=== PATIENT | female | born 1985 | race Caucasian/White ===

== ENCOUNTER 2017-04-27 23:09 | Emergency (ER) | payer BC, SELFPAY ==
[2017-04-27 23:11] VITALS: BP 111/64; PULSE 72; PULSE 78; RESP 14; TEMP 36.6; O2SAT 98; BMI 23.6
--- NOTE | 2017-04-27 23:47 | ED.VISSUMM ---
- ER Visit Summary Date of Service: 04/27/17 Chief Complaint: Abdominal pain with nausea and vomiting History of Present Illness: The patient is a 32 F. Past medical or surgical history. She has never been . Patient states for the last week he had intermittent sharp abdominal pain primarily suprapubic and periumbilical now it is in the epigastric region. Associated with nausea and vomiting. No hematemesis. No fever. No dysuria or hematuria. No vaginal bleeding or discharge she has never been before she states she was supposed to have her last menstrual period 2 weeks ago and missed it. She denies any fever. She denies any diarrhea or constipation. Physical Examination: 32-year-old female no acute distress. Vital signs are stable afebrile. Blood pressure 111/64. HEENT exam mildly dry mucous membranes. Neck nontender no lymphadenopathy. Lungs clear to auscultation bilaterally. Heart regular rhythm no murmur. Abdomen is soft and nondistended. No signs of obstruction. She has mild tenderness in the epigastric region and periumbilically. There is no hernia or masses. Normal bowel sounds. Both the right upper right lower quadrants are unremarkable. There are no peritoneal signs. She is moving all 4 extremities. Skin is unremarkable. Back is nontender no CVA tenderness. Neurologic exam is normal. Test Results: CBC shows a white count 11.5. Normal H&H. BMP unremarkable. Normal creatinine and gap. Liver enzymes are normal except for total bilirubin of 1.1. Lipase normal 131. UA shows blood on the macroscopic and ketones. However no signs of infection. Serum test is positive. Due to the test being positive and her abdominal pain I am obtaining a pelvic ultrasound and a quantitative hCG. Quantitative hCG returned at 42,397. Transvaginal pelvic ultrasound showed a single live IUP at 6 weeks and 4 days. With a heart rate of 105. Emergency Department Course and Treatment: Patient be treated with IV fluids and IV Zofran. Lab work will be obtained along with urinalysis. Treatment Plan: Repeat exam the patient is doing well at 0127. I went over all test results of both her and her significant other and we are waiting the ultrasound. Patient is doing well at 02 37 will be discharged home. Disposition: Discharge Impression: Abdominal pain with nausea and vomiting Newly diagnosed at 6 weeks and 4 days This note was generated with Dragon dictation software. It may contain incorrect words, spelling, and punctuation that were not noted in review of the chart prior to signing ED Disposition - Plan for ED Patient: Chief Complaint: Abd Pain Referrals: NOT,DEFINED [Primary Care Provider] -
[2017-04-28] MEDS: Ondansetron 4 MG/2 ML Vial IV (00:15)
[2017-04-28] MEDS: 0.9% Normal Saline 1,000 ML 1000 ML IV (00:15)
[2017-04-28 00:23] LABS: Bacteria 0 SEEN /hpf (None Seen); White Blood Cells 0 SEEN /hpf (0-5)
[2017-04-28 00:28] LABS: Absolute Neutrophil Count 8.5 X10^3/uL (2.0-7.7); Basophil# 0.01 X10^3/uL; Basophil% 0.1 % (0-1); Eosinophil# 0.04 X10^3/uL; Eosinophils% 0.3 % (0-5); Hematocrit 37.2 % (37-47); Hemoglobin 12.8 g/dl (12.0-15.0); Mean Corp Hgb Conc 34.4 g/gl (32-36); Mean Corpuscular Hgb 30.5 pg (27.0-32.0); Mean Corpuscular Volume 88.8 fL (81-99); Mean Platelet Vol. 10.1 fl (6.2-12.0); Monocyte# 0.65 X10^3/uL; Monocyte% 5.7 % (0-10); Neutrophil # 8.48 X10^3/uL (2.7-7.7); Neutrophil % 73.7 % (47-70); Platelet Count 191 K/mm3 (150-450); RBC Distribution Width CV 12.3 % (11.6-14.6); RBC Distribution Width SD 39.3 fl (35.1-43.9); Red Blood Count 4.19 M/mm3 (4.2-5.4); White Blood Count 11.5 K/mm3 (4.4-11.0)
[2017-04-28 00:28] LABS: Color, Urine Yellow (Yellow); Glucose, Dipstick Normal (Normal); Leukocyte Esterase-Dipstick Negative /ul (Negative); Nitrite-Dipstick Negative (Negative); Occult Blood-Urine 150 /ul (Negative); Protein-Dipstick 15 mg/dl (Negative); Specific Gravity, Urine 1.025 (1.002-1.030); Urine Bilirubin Dipstick Negative (Negative); Urine Clarity Clear (Clear); Urine Urobilinogen Normal (Normal)
[2017-04-28 00:35] LABS: POSITIVE COUNT NO; POSITIVE DIFFERENTIAL NO; POSITIVE MORPHOLOGY NO
[2017-04-28 00:38] LABS: Ketone-Dipstick 150 mg/dl (Negative); Mucous, Urine 3+ /hpf (<or=2+); Red Blood Cells-Urine 0-5 SEEN /hpf (0-5); Squamous Epithelial Cells - UA 0-5 SEEN /hpf (5-10)
[2017-04-28 00:41] LABS: AST(SGOT) 15 U/L (15-37); Alanine Aminotransfer ALT/SGPT 20 U/L (13-56); Albumin, Serum 3.3 g/dL (3.2-5.0); Alkaline Phosphatase 45 U/L (45-117); Anion Gap 7 (5-15); BUN 8 mg/dL (7-18); BUN/Creat Ratio 14.2 RATIO (10-20); Bilirubin, Direct 0.21 mg/dL (0.00-0.30); Calcium,Total 8.2 mg/dL (8.5-10.1); Chloride 108 mmol/L (98-107); Creatinine, Serum 0.56 mg/dL (0.55-1.02); EST Glomerular Filtration Rate 134 mL/min (>60); Est Glom Filt Rate - Afr Amer 162 mL/min (>60); Estimated Creatinine Clearance 105.51 ml/min; Globulin 3.2 g/dL (2.2-4.2); Glucose 87 mg/dL (74-106); Lipase 131 U/L (73-393); Potassium 3.4 mmol/L (3.5-5.1); Protein, Total 6.5 g/dL (6.4-8.2); Sodium Level 140 mmol/L (136-145)
[2017-04-28 01:07] LABS: Pregnancy, Serum, hCG Quali. POSITIVE Negative (0-9 Nonpreg)
--- NOTE | 2017-04-28 01:22 | US_ITS ---
STUDY: FIRST TRIMESTER OBSTETRICAL ULTRASOUND REASON FOR EXAM: Female, 32 years old. Pain, beta-hCG levels 42,000 LMP: 03/20/2017 TECHNIQUE: PRIOR ULTRASOUND: None. FINDINGS: There is visualization of a single gestational sac in a normal intrauterine position. The mean sac diameter (MSD) measures 1.92 cm, indicating an estimated gestational age (EGA) of 6 weeks, 6 days. The gestational sac shape is within normal limits. There is a visualized yolk sac. The yolk sac measures 3.8 mm. The placenta is non-visualized. There is visualization of a live embryo. The crown-rump length (CRL) measures 4.2 mm, indicating an estimated gestational age (EGA) of 6 weeks, 1 days. There is demonstrated cardiac activity with a heart rate of 105 bpm. The estimated gestation age (EGA) by LMP is 5 weeks, 4 days. The estimated date of delivery (SHAWNEE) by LMP is 12/25/2017. The estimated gestation age (EGA) by US is 6 weeks, 4 days. The estimated date of delivery (SHAWNEE) by US is 12/18/2017. The uterus measures 9.6 x 4.7 x 4.7 centimeters. There is no demonstrated uterine fibroid. The cervix is closed. The right ovary measures 3.6 x 2.5 x 1.6 cm. There is no right ovarian cyst. There is no visualized right adnexal mass or complex lesion. The left ovary measures 4.1 x 3.2 x 2.5 cm. There is no left ovarian cyst. There is no visualized left adnexal mass or complex lesion. There is no fluid in the cul de sac. US/Transvaginal w/Preg US IMPRESSION: Intrauterine gestation with sonographic age of 6 weeks 4 days. Cervix is closed. Positive cardiac activity. Electronically Signed: Gerard Atkinson MD at 3:26 EST Tel , Service support ,
--- NOTE | 2017-04-28 02:37 | ED.DEP ---
ED Disposition - Plan for ED Patient: Disposition: Home or Assisted Living Chief Complaint: Abd Pain Instructions: ED Preg Established Normal Sxs Prescriptions: Ondansetron [Zofran Odt] 4 mg PO Q4H PRN PRN #10 tab.rapdis PRN Reason: Nausea Referrals: Ingrid Pedroza MD [STAFF PHYSICIAN] - As soon as possible Additional Instructions: Zofran as needed for nausea. You have been diagnosed as at 6 weeks and 4 days. Call follow-up with [facility] physician for care. Stop smoking.
--- NOTE | 2017-04-28 02:41 | DCINST.ED_ITS ---
ED Disposition - Plan for ED Patient: Disposition: Home or Assisted Living Chief Complaint: Abd Pain Instructions: ED Preg Established Normal Sxs Prescriptions: Ondansetron [Zofran Odt] 4 mg PO Q4H PRN PRN #10 tab.rapdis PRN Reason: Nausea Referrals: Ingrid Pedroza MD [STAFF PHYSICIAN] - As soon as possible Additional Instructions: Zofran as needed for nausea. You have been diagnosed as at 6 weeks and 4 days. Call follow-up with [facility] physician for care. Stop smoking.
[2017-04-28 02:48] VITALS: PULSE 71; RESP 16; O2SAT 100
== END 2017-04-28 02:49 | disposition home or self-care (01) ==
PROVIDERS: Emergency Provider Emergency Medicine
DX: O21.9 Vomiting of pregnancy, unspecified (principal); R10.9 Unspecified abdominal pain; O99.331 Smoking (tobacco) complicating pregnancy, first trimester; Z3A.01 Less than 8 weeks gestation of pregnancy
CPT/HCPCS: 76817; 80048; 80076; 81001; 83690; 84702; 84703; 85025; 96361; 96374; 99283; J7030; A4216; J2405

== ENCOUNTER → 2017-05-06 14:39 | Outpatient (CLI) | payer BC, SELFPAY ==
[2017-05-06 16:14] LABS: hCG Titer Quant., Serum 124092 mIU/mL (<9 non-preg)
[2017-05-06 18:20] LABS: Chlamydia Trachomatis by PCR Negative (Negative); Neisserai gonorrhoeae by PCR Negative (Negative); Probe Check PASS; Sample Adequacy Control PASS; Specimen Processing Control PASS
[2017-05-07 08:50] LABS: Progesterone Level 24.57 ng/mL (See Comment)
[2017-05-14 15:50] LABS: HPV HC, High Risk Positive (Negative)
[2017-05-14 15:51] LABS: HPV Reflexed? YES, CHARGE PATIENT
== END ==
PROVIDERS: Visit Provider Obstetrics & Gynecology
DX: Z12.4 Encounter for screening for malignant neoplasm of cervix (principal); O20.0 Threatened abortion; Z11.3 Encounter for screening for infections with a predominantly sexual mode of transmission
CPT/HCPCS: 36415; 84144; 84702; 87491; 87591; 87624; 88175; G0145

== ENCOUNTER → 2017-05-09 14:02 | Outpatient (CLI) | payer BC, SELFPAY | PROVIDERS: Visit Provider Obstetrics & Gynecology | DX: Z32.01 Encounter for pregnancy test, result positive (principal); O20.0 Threatened abortion | CPT/HCPCS: 36415; 84702 ==

== ENCOUNTER 2017-05-15 05:49 | Day surgery (SDC) | payer BC, SELFPAY ==
--- NOTE | 2017-05-15 | POC_PTH ---
PATIENT: CHINTAN LIVINGSTON LOC: [facility] [place] U#:[id number] AGE/SX: 32/F ROOM: RE05/15/[address]: Dr. Abner Zhu MD : 1985 BED: DIS: 05/15/2017 SPEC #: [id number] RECD: 05/15/17 11:10 STATUS: ALICIA MARY #: [id number] WILSON: 05/15/17 00:[address]: Abner Zhu DEPT: SURGICAL PATHOLOGY RECD BY: Austin Werner ENTERED: 05/15/17 11:11 SP TYPE: PROD CONC OTHR DR: No Primary Care Phys Tissues: Product of conception, NOS Procedures: Surgery Specimen Level IV HEADER OPERATION: Suction dilation and curettage PRE-OP DIAGNOSIS: Missed TISSUE SUBMITTED: Products of conception MICROSCOPIC DIAGNOSIS Products of conception: [place]id[place], gestational endometrium and immature chorionic villi (products of conception). SJ:jonas 05/16/17 MICROSCOPIC DESCRIPTION Slides are reviewed. GROSS DESCRIPTION Received in fixative is one container labeled with the patient's name and designated POC. The specimen consists of multiple pieces of mercado-pink soft tissue that in aggregate measure 7 x 6 x 2 cm. No tissue is identified. Or Nurse Manager tissue is submitted in two cassettes. / SJ:rg 05/15/17 TC:5 CPT: 70264
[2017-05-15 06:08] VITALS: BP 111/59; PULSE 62; RESP 16; TEMP 36.6; O2SAT 100; BMI 24.5
[2017-05-15 06:24] LABS: Hematocrit 40.3 % (37-47); Hemoglobin 13.8 g/dl (12.0-15.0); Mean Corp Hgb Conc 34.2 g/gl (32-36); Mean Corpuscular Hgb 30.6 pg (27.0-32.0); Mean Corpuscular Volume 89.4 fL (81-99); Mean Platelet Vol. 9.9 fl (6.2-12.0); Platelet Count 213 K/mm3 (150-450); RBC Distribution Width CV 12.1 % (11.6-14.6); Red Blood Count 4.51 M/mm3 (4.2-5.4); White Blood Count 11.5 K/mm3 (4.4-11.0)
[2017-05-15 06:29] LABS: Scan Indicated on CBC? Y/N NO
--- NOTE | 2017-05-15 06:34 | OP.PCM_ITS ---
Problem List (1) Missed ab Status: Acute Report of Operation Date of Procedure: 05/15/17 Pre-Operative Diagnosis: Missed at 6 weeks Post-Operative Diagnosis: same Surgery/Procedure Performed:: Suction Dilation and Curettage Description of Surgical Findings:: 8 weeks size uterus, products of conception appropriate for US findings computer systems consultant: None Type of Anesthesia:: MAC Anesthesiologist: Ja Puckett Special Medications: none Specimen's removed: Products of Conception Drains: none Estimated Blood Loss (mL): 50cc Fluids Replaced: 500cc LR Description of Procedure: Elisa was taken to the OR with IV running. She was given two grams of cefotetan as surgical prophylaxis. SCDs were in place and operational from the preoperative area through surgery and into recovery. MAC anesthesia was introduced without complication. She was then prepped and draped in the dorsal lithotomy position. A red rubber catheter was used to drain the bladder. A weighted speculum was placed in the posterior vagina. The cervix was identified and the anterior lip grasped with a single toothed tenaculum. The cervix was then serially dilated to 8mm without difficulty. A #7 suction curette was placed into the uterine cavity, suction applied and products of conception was obtained. A sharp curettage was then performed. The suction curette was replaced and the remaining products were removed. Bleeding was appropriate. All instruments were then removed. She was reversed from anesthesia and taken to the recovery room in stable condition. SHe has rH positive blood type. - Complications none - Admit VTE Documentation VTE Present on Admission: No VTE Mechan Device Prophylaxis: SCD's VTE Pharm Prophylaxis ordered?: No
--- NOTE | 2017-05-15 07:24 | PCM.DC ---
- Discharge Diagnoses Current Active Problems: Current Active and Chronic Problems Missed ab (Acute) You will use the following diet at home:: No restrictions Your food should be the consistency of: Regular Discharge Activity: Return to Normal Activity, May Drive, May not drive while taking narcotic pain medications., May Shower Return to work on:: 05/19/17 May shower in (days): 0 May resume sexual activity in: 3 weeks Call your doctor if your incision/area has: Sudden Increased Bleeding, Increased Pain/ Swelling, Foul Smelling Discharge Call your doctor if you observe: Fever of 101 or Higher, Inability to urinate, Inability to have a bowel movement, Using more than one pad per hour, Shortness of breath, Chest pain, Calf discomfort, Uncontrolled pain Cleanse incision/area with: Soap & Water Allergies/Adverse Reactions: Allergies No Known Allergies Allergy (Verified 05/13/17 16:00) Medications to take at Discharge Ibuprofen [Motrin] 800 mg PO TID PRN PRN #30 tab 05/15/17 Oxycodone [Oxyir] 5 mg PO Q4H PRN PRN 7 Days #14 tab 05/15/17 The following prescriptions were given: Oxycodone [Oxyir] 5 mg PO Q4H PRN PRN 7 Days #14 tab PRN Reason: Severe Pain (6-10/10) Ibuprofen [Motrin] 800 mg PO TID PRN PRN #30 tab PRN Reason: pain or cramping Primary Care Physician: Care Physician,No Primary [Primary Care Provider] - Please Follow Up With: Abner Zhu MD When: 1-2 weeks Proposed Discharge Date: 05/15/17
[2017-05-15 07:52] VITALS: BP 103/65; BP 111/59; PULSE 70; RESP 16; TEMP 36.6; O2SAT 99
[2017-05-15 07:55] VITALS: BP 111/59; BP 112/75; PULSE 60; RESP 16; O2SAT 98
[2017-05-15 08:00] VITALS: BP 102/70; BP 111/59; PULSE 58; RESP 16; O2SAT 100
[2017-05-15 08:05] VITALS: BP 104/69; BP 111/59; PULSE 55; PULSE 58; RESP 16; TEMP 36.4; O2SAT 100
[2017-05-15 08:58] VITALS: BP 111/59
== END 2017-05-15 08:59 | disposition home or self-care (01) ==
LOC: SDC 05:50 → AC 05:51
PROVIDERS: Visit Provider Obstetrics & Gynecology
PROC: (CPT 59820; principal; 2017-05-15 07:15)
DX: O02.1 Missed abortion (principal); Z87.891 Personal history of nicotine dependence; Z3A.01 Less than 8 weeks gestation of pregnancy
CPT/HCPCS: 01965; 59820; 36415; 85027; 86850; 86900; 88305; J7120; J2405

== ENCOUNTER → 2017-06-17 16:17 | Outpatient (CLI) | payer BC, SELFPAY ==
--- NOTE | 2017-06-17 | CER_PTH ---
PATIENT: CHINTAN LIVINGSTON LOC: [facility] U#:[id number] AGE/SX: 39/F ROOM: RE06/17/[address]: Dr. Abner hZu MD : 1985 BED: DIS: SPEC #: [id number] RECD: 06/17/17 16:00 STATUS: ALICIA MARY #: [id number] WILSON: 06/17/17 00:[address]: Abner Zhu DEPT: SURGICAL PATHOLOGY RECD BY: Ginny Vargas Tissues: A - Uterine cervix, NOS B - Endocervical Procedures: Surgery Specimen Level IV HEADER OPERATION: Colposcopy PRE-OP DIAGNOSIS: Pap ASCUS, HPV/HR positive TISSUE SUBMITTED: A. Cervical biopsy at 10 o?clock, B. ECC MICROSCOPIC DIAGNOSIS A. Cervix at 10 o?clock, biopsy: Mild, moderate and focal severe squamous dysplasia, MARY I-III (HGSIL). Changes consistent with HPV cytopathic effect. Squamous metaplasia and chronic inflammation. B. Endocervix, curettings: Strips squamous mucosa with mild and moderate squamous dysplasia, MARY I-II (HGSIL). Strips of benign superficial endocervix with squamous metaplasia. AM:jonas 06/19/17 COMMENT A & B. Results from immunohistochemistry ([id number]) for surrogate HPV marker (p16) will be reported separately. MICROSCOPIC DESCRIPTION Slides are reviewed. GROSS DESCRIPTION A - Received in fixative is one container labeled with the patient's name and designated cervical biopsy. The specimen consists of one irregular fragment of light mercado soft tissue that measures 0.5 x 0.2 x 0.1 cm. The specimen is totally submitted in one cassette. B - Received in fixative is one container labeled with the patient's name and designated ECC. The specimen consists of multiple irregular fragments of light to dark mercado mucoid material that in aggregate measure 1.5 x 1 x <0.1 cm. The specimen is totally submitted in one cassette. / AM:jonas 06/18/17 TC:5 CPT: 44235 x2
--- NOTE | 2017-06-17 | IMM_PTH ---
PATIENT: CHINTAN LIVINGSTON LOC: [facility] U#:[id number] AGE/SX: 39/F ROOM: RE06/17/[address]: Dr. Abner Zhu MD : 1985 BED: DIS: SPEC #: [id number] RECD: 06/19/17 10:59 STATUS: ALICIA MARY #: [id number] WILSON: 06/17/17 00:[address]: Abner Zhu DEPT: IMMUNOHISTOCHEMISTRY RECD BY: Neetu Simeon Tissues: A - Uterine cervix, NOS B - Endocervical Procedures: p16 (initial) KI-67 (add) PHYSICIAN & [place] [id number] SPECIMEN INFORMATION: Tissue Source: A ? Cervical biopsy at 10 o?clock, B - ECC Clinical Info: ASCUS, HPV,HR positive Specimen Number: [id number] A & B CPT code: 50885 x2, 23017 x2 METHODOLOGY: Deparaffinized sections of prefer/formalin-fixed tissue or PAP/DQ stained slides are incubated with monoclonal/polyclonal antibodies/oligonucleotide probes. Localization is made via biotin free immunoperoxidase method. Appropriate controls are performed and reacted as expected. Results on target cell population are indicated in the following table: RESULTS: ANTIBODY / CLONE RESULT Block A P16 (E6H4) positive, block-like Ki-67 (30-9) positive, moderate Block B P16 (E6H4) positive, block-like Ki-67 (30-9) positive, moderate These tests were developed and their performance characteristics determined by [facility]. They may not have been cleared or approved by the U.S. Food and Drug Administration. The FDA has determined that such clearance or approval is not necessary. INTERPRETATION: A. Cervix at 10 o?clock, biopsy: Severe squamous dysplasia, MARY III (HGSIL). B. ECC: Moderate squamous dysplasia, MARY II (HGSIL). AM:jonas 06/19/17
== END ==
PROVIDERS: Visit Provider Obstetrics & Gynecology
DX: R87.610 Atypical squamous cells of undetermined significance on cytologic smear of cervix (ASC-US) (principal); R87.810 Cervical high risk human papillomavirus (HPV) DNA test positive
CPT/HCPCS: 88305; 88341; 88342

== ENCOUNTER → 2017-07-20 17:58 | Outpatient (CLI) | payer BC, SELFPAY ==
[2017-07-20 18:39] LABS: Hematocrit 40.3 % (37-47); Hemoglobin 13.9 g/dl (12.0-15.0); Mean Corp Hgb Conc 34.5 g/gl (32-36); Mean Corpuscular Hgb 31.3 pg (27.0-32.0); Mean Corpuscular Volume 90.8 fL (81-99); Mean Platelet Vol. 10.4 fl (6.2-12.0); Platelet Count 208 K/mm3 (150-450); RBC Distribution Width CV 12.2 % (11.6-14.6); RBC Distribution Width SD 40.6 fl (35.1-43.9); Red Blood Count 4.44 M/mm3 (4.2-5.4)
[2017-07-20 18:48] LABS: International Normalized Ratio 1.2; Prothrombin Time (Protime)PT. 15.1 SECONDS (11.7-14.9)
[2017-07-20 18:49] LABS: Partial Thromboplast Time 28.1 Seconds (24.1-36.2)
[2017-07-20 18:52] LABS: Scan Indicated on CBC? Y/N NO
[2017-07-20 19:00] LABS: Pregnancy, Serum, hCG Quali. NEGATIVE Negative (0-9 Nonpreg)
== END ==
PROVIDERS: Visit Provider Obstetrics & Gynecology
DX: Z01.818 Encounter for other preprocedural examination (principal)
CPT/HCPCS: 36415; 84703; 85027; 85610; 85730; 86850; 86900

== ENCOUNTER 2017-07-22 10:18 | Day surgery (SDC) | payer BC, SELFPAY ==
[2017-07-17 16:42] LABS: Hematocrit 38.7 % (37-47); Hemoglobin 13.1 g/dl (12.0-15.0); Mean Corp Hgb Conc 33.9 g/gl (32-36); Mean Corpuscular Hgb 31.1 pg (27.0-32.0); Mean Corpuscular Volume 91.9 fL (81-99); Mean Platelet Vol. 10.5 fl (6.2-12.0); Platelet Count 211 K/mm3 (150-450); RBC Distribution Width CV 12.4 % (11.6-14.6); RBC Distribution Width SD 41.6 fl (35.1-43.9); Red Blood Count 4.21 M/mm3 (4.2-5.4); White Blood Count 7.6 K/mm3 (4.4-11.0)
[2017-07-17 16:58] LABS: International Normalized Ratio 1.2; Scan Indicated on CBC? Y/N NO
[2017-07-17 16:59] LABS: Partial Thromboplast Time 27.5 Seconds (24.1-36.2)
[2017-07-17 17:36] LABS: Pregnancy, Serum, hCG Quali. NEGATIVE Negative (0-9 Nonpreg)
[2017-07-22] VITALS (7 sets, daily range): BP systolic 117–133; BP diastolic 79–97; PULSE 54–71; RESP 14–16; TEMP 36.4–36.7; O2SAT 98–100; BMI 23.3
--- NOTE | 2017-07-22 | IMM_PTH ---
PATIENT: CHINTAN LIVINGSTON LOC: [facility] [place] U#:[id number] AGE/SX: 32/F ROOM: RE07/22/[address]: Dr. Abner Zhu MD : 1985 BED: DIS: 07/22/2017 SPEC #: [id number] RECD: 07/24/17 12:59 STATUS: LAICIA REDorota #: [id number] WILSON: 07/22/17 00:[address]: Abner Zhu DEPT: IMMUNOHISTOCHEMISTRY RECD BY: Neetu Simeon ENTERED: 07/24/17 13:00 SP TYPE: IMMUNO OTHR DR: No Primary Care Phys Tissues: Uterine cervix, NOS Procedures: p16 (initial) KI-67 (add) PHYSICIAN & INSTITUTION [place] [id number] SPECIMEN INFORMATION: Tissue Source: LEEP of cervix Clinical Info: Cervical dysplasia Specimen Number: [id number] #5 CPT code: 98636, 52531 METHODOLOGY: Deparaffinized sections of prefer/formalin-fixed tissue or PAP/DQ stained slides are incubated with monoclonal/polyclonal antibodies/oligonucleotide probes. Localization is made via biotin free immunoperoxidase method. Appropriate controls are performed and reacted as expected. Results on target cell population are indicated in the following table: RESULTS: ANTIBODY / CLONE RESULT Block 5 P16 (E6H4) positive, block staining Ki-67 (30-9) positive These tests were developed and their performance characteristics determined by [facility]. They may not have been cleared or approved by the U.S. Food and Drug Administration. The FDA has determined that such clearance or approval is not necessary. INTERPRETATION: LEEP of cervix: Moderate to severe squamous dysplasia. SJ:jonas 07/25/17
[2017-07-22 10:37] LABS: Internal QC Validated? YES +Cl - CLEAR BKGD; Pregnancy, Urine Negative Negative
--- NOTE | 2017-07-22 12:00 | CER_PTH ---
PATIENT: CHINTAN LIVINGSTON LOC: [facility] [place] [place] U#:[id number] AGE/SX: 32/F ROOM: RE07/22/[address]: Dr. Abner Zhu MD : 1985 BED: DIS: 07/22/2017 SPEC #: [id number] RECD: 07/22/17 16:17 STATUS: ALICIA MARY #: [id number] WILSON: 07/22/17 12:[address]: Abner Zhu DEPT: SURGICAL PATHOLOGY RECD BY: Austin Werner ENTERED: 07/23/17 08:07 SP TYPE: CERV OTHR DR: No Primary Care Phys Tissues: Uterine cervix, NOS Procedures: Surgery Specimen Level V HEADER OPERATION: LEEP cone PRE-OP DIAGNOSIS: Cervical dysplasia TISSUE SUBMITTED: LEEP of cervix MICROSCOPIC DIAGNOSIS Cervix, LEEP conization: Focal moderate to severe squamous dysplasia (HGSIL, MARY II-III). Focal squamous metaplasia. See comment. SJ:jonas 07/24/17 COMMENT Evaluation of the resection margin is difficult, as specimen is received in multiple pieces. Please make reference to previous specimen ([id number]), cervix at 10 o?clock, biopsy with diagnosis of mild, moderate and focal severe squamous dysplasia and endocervix, curettings with diagnosis of squamous mucosa with mild and moderate squamous dysplasia. Immunohistochemistry ([id number]) for surrogate HPV marker (p16) supports the above diagnosis. MICROSCOPIC DESCRIPTION Slides are reviewed. GROSS DESCRIPTION Received in fixative is one container labeled with the patient's name and designated LEEP of cervix. The specimen consists of three variable size pieces of mercado, indurated tissue measuring 2.2 x 0.6 x 0.5 cm, 1.5 x 0.5 x 0.2 cm and 2 x 1 x 0.3 cm. No mucosal lesion is identified. Nonmucosal surface is inked. The specimen is serially sectioned and submitted entirely in five cassettes as follows: 1 ? smallest piece, 2 & 3 ? one larger piece, 4 & 5 ? second larger piece. / SJ:jonas 07/23/17 TC:5 CPT: 56139
--- NOTE | 2017-07-22 12:18 | PCM.DC ---
You will use the following diet at home:: Regular Discharge Activity: Return to Normal Activity, No Restrictions, May not drive while taking narcotic pain medications., May Shower Return to work on:: 07/25/17 May shower in (days): 0 May resume sexual activity in: 4-6 weeks Call your doctor if your incision/area has: Continuous Slow Oozing, Sudden Increased Bleeding, Increased Pain/ Swelling, Foul Smelling Discharge Call your doctor if you observe: Fever of 101 or Higher, Inability to urinate, Inability to have a bowel movement, Using more than one pad per hour, Shortness of breath, Chest pain, Calf discomfort, Uncontrolled pain Cleanse incision/area with: Soap & Water Allergies/Adverse Reactions: Allergies No Known Allergies Allergy (Verified 07/16/17 15:43) Medications to take at Discharge Ibuprofen [Motrin] 800 mg PO TID PRN PRN #30 tab 07/22/17 Oxycodone [Oxyir] 5 mg PO Q4H PRN PRN 7 Days #20 tab 07/22/17 The following prescriptions were given: Oxycodone [Oxyir] 5 mg PO Q4H PRN PRN 7 Days #20 tab PRN Reason: Pain Ibuprofen [Motrin] 800 mg PO TID PRN PRN #30 tab PRN Reason: pain or cramping Primary Care Physician: Care Physician,No Primary [Primary Care Provider] - Please Follow Up With: Abner Zhu MD When: one week
--- NOTE | 2017-07-22 12:34 | PCM.OPRPT ---
Problem List (1) Cervical dysplasia Status: Chronic Report of Operation Date of Procedure: 07/22/17 Pre-Operative Diagnosis: Cervical dysplasia Post-Operative Diagnosis: Same Surgery/Procedure Performed:: Loop Electrosurgical Excisional Procedure (LEEP) Description of Surgical Findings:: No gross ectocervical lesions noted. german professor: None Type of Anesthesia:: MAC Anesthesiologist: Sal Duke Special Medications: none Specimen's removed: Portion of ectocervix and endocervix Drains: none Estimated Blood Loss (mL): none Fluids Replaced: 500cc LR Description of Procedure: Elisa was taken to the OR with IV running. She was given two grams of Cefotetan intravenously for surgical prophylaxis. MAC anesthesia was introduced. She was then prepped and draped in the dorsal lithotomy position. A red rubber catheter was used to drain the bladder. A shielded speculum was then placed. The cervix was painted with a strong iodine solution. A medium sized loop was then used to remove a portion of the ectocervix. Another portion of the endocervix was removed. Bleeding was minimal. A ball cautery was used to coagulate the margins of the cervix. She was reversed from anesthesia and taken to the recovery room in stable condition. Sponge and instrument counts were correct. - Complications none - Admit VTE Documentation VTE Present on Admission: No VTE Mechan Device Prophylaxis: SCD's VTE Pharm Prophylaxis ordered?: No
--- NOTE | 2017-07-22 12:41 | OP.PCM_ITS ---
Problem List (1) Cervical dysplasia Status: Chronic Report of Operation Date of Procedure: 07/22/17 Pre-Operative Diagnosis: Cervical dysplasia Post-Operative Diagnosis: Same Surgery/Procedure Performed:: Loop Electrosurgical Excisional Procedure (LEEP) Description of Surgical Findings:: No gross ectocervical lesions noted. sales and marketing analyst: None Type of Anesthesia:: MAC Anesthesiologist: Sal Duke Special Medications: none Specimen's removed: Portion of ectocervix and endocervix Drains: none Estimated Blood Loss (mL): none Fluids Replaced: 500cc LR Description of Procedure: Elisa was taken to the OR with IV running. She was given two grams of Cefotetan intravenously for surgical prophylaxis. MAC anesthesia was introduced. She was then prepped and draped in the dorsal lithotomy position. A red rubber catheter was used to drain the bladder. A shielded speculum was then placed. The cervix was painted with a strong iodine solution. A medium sized loop was then used to remove a portion of the ectocervix. Another portion of the endocervix was removed. Bleeding was minimal. A ball cautery was used to coagulate the margins of the cervix. She was reversed from anesthesia and taken to the recovery room in stable condition. Sponge and instrument counts were correct. - Complications none - Admit VTE Documentation VTE Present on Admission: No VTE Mechan Device Prophylaxis: SCD's VTE Pharm Prophylaxis ordered?: No
== END 2017-07-22 13:24 | disposition home or self-care (01) ==
LOC: SDC 10:18 → AC 10:19
PROVIDERS: Visit Provider Obstetrics & Gynecology
PROC: 0UBC7ZZ Excision of Cervix, Via Natural or Artificial Opening (ICD-10-PCS; CPT 57522; principal; 2017-07-22 11:45)
DX: N87.1 Moderate cervical dysplasia (principal); K58.9 Irritable bowel syndrome, unspecified; F17.210 Nicotine dependence, cigarettes, uncomplicated
CPT/HCPCS: 00940; 57522; 36415; 81025; 84703; 85027; 85610; 85730; 88307; 88341; 88342; J7120; J2405

== ENCOUNTER 2017-10-24 14:57 | Emergency (ER) | payer BC, SELFPAY ==
[2017-10-24 14:58] VITALS: BP 119/87; PULSE 79; RESP 16; TEMP 36.2; O2SAT 66; BMI 23.7
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
[2017-10-24 17:20] VITALS: RESP 14
== END 2017-10-24 17:21 | disposition home or self-care (01) ==
PROVIDERS: Emergency Provider Emergency Medicine
DX: S09.90XA Unspecified injury of head, initial encounter (principal); S16.1XXA Strain of muscle, fascia and tendon at neck level, initial encounter; M25.561 Pain in right knee; R07.9 Chest pain, unspecified; M62.838 Other muscle spasm; V49.9XXA Car occupant (driver) (passenger) injured in unspecified traffic accident, initial encounter; Y93.9 Activity, unspecified; Y92.9 Unspecified place or not applicable; Y99.9 Unspecified external cause status; Z72.0 Tobacco use
CPT/HCPCS: 70450; 71046; 72125; 73564; 99284

== ENCOUNTER → 2017-12-16 19:09 | Outpatient (CLI) | payer BC, SELFPAY ==
[2017-12-23 09:29] LABS: HPV Reflexed? NOT INDICATED
== END ==
PROVIDERS: Referring Provider Obstetrics & Gynecology; Visit Provider Obstetrics & Gynecology
DX: Z12.4 Encounter for screening for malignant neoplasm of cervix (principal)
CPT/HCPCS: 88175; G0145

== ENCOUNTER 2018-02-19 12:21 | Emergency (ER) | payer BC, SELFPAY ==
[2018-02-19 12:21] VITALS: BMI 23.6
[2018-02-19 12:22] VITALS: BP 150/87; PULSE 65; RESP 15; TEMP 36.3; O2SAT 99; BMI 23.8
--- NOTE | 2018-02-19 13:00 | RAD_ITS ---
STUDY: X-RAY - LEFT WRIST REASON FOR EXAM: Female, 32 years old. Pain. No known injury. TECHNIQUE: 3 view(s) of the wrist were obtained. COMPARISON: None. FINDINGS: Normal visualized distal radius and ulna. Normal radiocarpal articulation. Normal distal radioulnar articulation. Normal carpal bones. Normal carpal articulations. Normal carpometacarpal articulation of the thumb. Normal second through fifth carpometacarpal articulations. Normal visualized metacarpal bones. The soft tissue structures are unremarkable. RAD/Wrist min 3 Views IMPRESSION: Normal x-ray examination of the wrist. Electronically Signed: León Calle MD at 13:45 EST Tel [phone], Service support ,
[2018-02-19] MEDS: Ibuprofen 600 MG Tablet PO (13:35)
--- NOTE | 2018-02-19 14:02 | ED.DCSUM_ITS ---
- ER Visit Summary Date of Service: 02/19/18 Chief Complaint: Left wrist pain History of Present Illness: The patient is a 32 F with left wrist pain that came on today. Pain is over her volar left wrist. She noted some swelling to the area. She does a lot of lifting at work, but denies any definite injuries. No weakness or numbness. No other associated symptoms. Nothing makes it better or worse. Physical Examination: Afebrile vital signs unremarkable. Inspection shows a a hematoma about the size of a half dollar over her left wrist. Skin is intact. No deformity. Range of motion normal. Neurovascular intact distally. Test Results: Xray is negative Emergency Department Course and Treatment: Patient treated with anti- inflammatories. Rest and ice. Splint as needed. Follow-up with primary care. This is likely a hematoma. Treatment Plan: As above Disposition: Discharged Impression: 1. Left wrist hematoma This note was generated with [employer] dictation software. It may contain incorrect words, spelling, and punctuation that were not noted in review of the chart prior to signing ED Disposition - Plan for ED Patient: Chief Complaint: Upper Extremity Injury Referrals: Care Physician,No Primary [Primary Care Provider] -
--- NOTE | 2018-02-19 14:02 | ED.DEP ---
ED Disposition - Plan for ED Patient: Chief Complaint: Upper Extremity Injury Instructions: ED Sprain Wrist Prescriptions: Ibuprofen [Motrin] 800 mg PO TID PRN PRN #20 tab PRN Reason: Pain Referrals: Care Physician,No Primary [Primary Care Provider] -
[2018-02-19 14:11] VITALS: BP 110/67; RESP 15
--- OUTSIDE RECORDS SUMMARY | 2018-04-16 16:55 | XMS RPT_ITS ---
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 mercado, indurated tissue measuring 2.2 x 0.6 x 0.5 cm, 1.5 x 0.5 x 0.2 cm and 2 x 1 x 0.3 cm. No mucosal lesion is identified. Nonmucosal surface is inked. The specimen is serially sectioned and submitted entirely in five cassettes as follows: 1 smallest piece, 2 AND 3 one larger piece, 4 AND 5 second larger piece. / SJ:jonas 07/23/17 TC:5 CPT: 19208 HEADER OPERATION: LEEP cone PRE-OP DIAGNOSIS: Cervical dysplasia TISSUE SUBMITTED: LEEP of cervix MICROSCOPIC DESCRIPTION Slides are reviewed. 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 Focal squamous metaplasia. See comment. SJ:jonas 07/24/17 Signed Abilio Anguiano 07/25/17 <signature on file> Performed By: #### PCER #### [facility] [address] [place], [place], [address] ,URINE Collected: 07/22/2017 Status: F Source: [facility] [place] 10:30 AM [facility] TYPE CODE TESTS RESULT OUT OF REFERENCE UNITS RANGE LAB L400.8000 Negative Normal HCGUQUAL Negative Result Comment: Very dilute urine specimens, as indicated by a low specific gravity, may not contain electronics parts sales representative levels of hCG. If is still suspected, a first morning urine specimen should be collected 48 hours later and tested. Performed By: #### L400.7600 #### [facility] [address] [place], [address] IMMUNOHISTOCHEMISTRY Observed: 07/22/2017 Status: F Source: [place] 12:00 AM [facility] Patient: CHINTAN PATEL : 1985 (/) Acct Num: [id number] Phys: Abner Zuh MD Unit Num: [id number] Loc[place] [facility] [place]imen: [id number] Received: 07/24/17 - 1259 Spec Type: IMMUNO TISSUES TISSUES: Uterine cervix, NOS - #5 SPECIMEN INFORMATION: Tissue Source: LEEP of cervix Clinical Info: Cervical dysplasia Specimen Number: [id number] #5 CPT code: 47105, 79669 METHODOLOGY: Deparaffinized sections of prefer/formalin-fixed tissue or PAP/DQ stained slides are incubated with monoclonal/polyclonal antibodies/oligonucleotide probes. Localization is made via biotin free immunoperoxidase method. Appropriate controls are performed and reacted as expected. Results on target cell population are indicated in the following table: RESULTS: ANTIBODY / CLONE RESULT Block 5 P16 (E6H4) positive, block staining Ki-67 (30-9) positive These tests were developed and their performance characteristics determined by [facility]. They may not have been cleared or approved by the U.S. Food and Drug Administration. The FDA has determined that such clearance or approval is not necessary. INTERPRETATION: LEEP of cervix: Moderate to severe squamous dysplasia. SJ:jonas 07/25/17 PHYS[facility]IAN [facility] IN[facility] [address] [address] Signed Abilio Anguiano 07/25/17 <signature on file> Performed By: #### PIMM #### [facility] [address] [place] [address]. [place], [place], [address] PROTHROMBIN TIME W/INR Collected: 07/20/2017 Status: F Source: [place] 6:25 PM [facility] TYPE CODE TESTS RESULT OUT OF RANGE REFERENCE UNITS LAB L300.4150 11.7-14.9 SECONDS High PROTIME 15.1 LAB L300.4200 Normal INR 1.2 Performed By: #### L300.3900, L300.4310 #### [facility] [address] [place] [address]. [place], [address] PARTIAL THROMBOPLAST Collected: 07/20/2017 Status: F Source: [place] TIME 6:25 PM [facility] TYPE CODE TESTS RESULT OUT OF RANGE REFERENCE UNITS LAB L300.4310 24.1-36.2 Seconds Normal PTT 28.1 Performed By: #### L300.3900, L300.4310 #### [facility] [place], [address] CBC-COMPLETE BLOOD CNT Collected: 07/20/2017 Status: F Source: [place] NO DIFF 6:25 PM [facility] TYPE CODE TESTS RESULT OUT OF RANGE REFERENCE UNITS LAB L100.1000 4.4-11.0 K/mm3 Normal WBC 8.0 LAB L100.1200 4.2-5.4 M/mm3 Normal RBC 4.44 LAB L100.1300 12.0-15.0 g/dl Normal HGB 13.9 LAB L100.1400 37-47 % Normal HCT 40.3 LAB L100.1500 81-99 fL Normal MCV 90.8 LAB L100.1600 27.0-32.0 pg Normal MCH 31.3 LAB L100.1700 32-36 g/gl Normal MCHC 34.5 LAB L100.1810 11.6-14.6 % Normal RDW CV 12.2 LAB L100.1820 35.1-43.9 fl Normal RDW SD 40.6 LAB L100.1900 150-450 K/mm3 Normal PLT 208 LAB L100.2000 6.2-12.0 fl Normal MPV 10.4 Performed By: #### L100.0500 #### [facility] [address] [place], [place], [address] ,SERUM,HCG QUALI. Collected: Status: F Source: [place] 07/20/2017 6:25 PM [facility] Order Comment: Date of Last Menstrual Period? 07/06/17 TYPE CODE TESTS RESULT OUT OF REFERENCE UNITS RANGE LAB L700.7000 0-9 Nonpreg Negative Normal HCGSQUAL NEGATIVE LAB L700.6700 =>Qualitative mIU/mL Normal HCG Qual < 1 triggr Performed By: #### L700.6800 #### [facility] [address] [place], [address] TYPE AND SCREEN Collected: 07/20/2017 Status: F Source: [place] 6:25 PM [facility] Order Comment: Surgery Date: 07/22/17 Hx of Preganancy in last 3 Months Yes Ever experience any problems with transfusion(s)? N Hx of Transfusion in last 3 Months N Reason for Type AND Screen/Red Cells: SURGERY Time: 0000 Other - use comments: TS SURGICAL PROCEDURE: CERVIX BIO TYPE CODE TESTS RESULT OUT OF RANGE REFERENCE UNITS LAB B10.0800 AB Normal BLOOD TYPE GEL POSITIVE LAB B100.4000 Normal Antibody NEGATIVE Screen Performed By: #### B101.7475 #### [facility] [address] [place], [place], [address] CBC-COMPLETE BLOOD CNT Collected: 07/17/2017 Status: F Source: [place] NO DIFF 3:54 PM [facility] TYPE CODE TESTS RESULT OUT OF RANGE REFERENCE UNITS LAB L100.1000 4.4-11.0 K/mm3 Normal WBC 7.6 LAB L100.1200 4.2-5.4 M/mm3 Normal RBC 4.21 LAB L100.1300 12.0-15.0 g/dl Normal HGB 13.1 LAB L100.1400 37-47 % Normal HCT 38.7 LAB L100.1500 81-99 fL Normal MCV 91.9 LAB L100.1600 27.0-32.0 pg Normal MCH 31.1 LAB L100.1700 32-36 g/gl Normal MCHC 33.9 LAB L100.1810 11.6-14.6 % Normal RDW CV 12.4 LAB L100.1820 35.1-43.9 fl Normal RDW SD 41.6 LAB L100.1900 150-450 K/mm3 Normal PLT 211 LAB L100.2000 6.2-12.0 fl Normal MPV 10.5 Performed By: #### L100.0500 #### [facility] [address] [place], [place], [address] PROTHROMBIN TIME W/INR Collected: 07/17/2017 Status: F Source: [place] 3:54 PM [facility] Order Comment: PT WAS IN [place] SHE WAS ADVISED TO COME TWO DAYS BEFORE HER SURGERY TO GET HER TSPAT DONE TYPE CODE TESTS RESULT OUT OF RANGE REFERENCE UNITS LAB L300.4150 11.7-14.9 SECONDS High PROTIME 15.0 LAB L300.4200 Normal INR 1.2 Performed By: #### L300.3900, L300.4310 #### [facility] [address] [place], [place], [address] PARTIAL THROMBOPLAST Collected: 07/17/2017 Status: F Source: [place] TIME 3:54 PM [facility] Order Comment: PT WAS IN [place] SHE WAS ADVISED TO COME TWO DAYS BEFORE HER SURGERY TO GET HER TSPAT DONE TYPE CODE TESTS RESULT OUT OF RANGE REFERENCE UNITS LAB L300.4310 24.1-36.2 Seconds Normal PTT 27.5 Performed By: #### L300.3900, L300.4310 #### [facility] [address] [place], [address] ,SERUM,HCG QUALI. Collected: Status: F Source: [place] 07/17/2017 3:54 PM [facility] TYPE CODE TESTS RESULT OUT OF REFERENCE UNITS RANGE LAB L700.7000 0-9 Nonpreg Negative Normal HCGSQUAL NEGATIVE LAB L700.6700 =>Qualitative mIU/mL Normal HCG Qual 1 triggr Performed By: #### L700.6800 #### [facility] [address] [facility] [place], [address] CERVICAL Observed: 06/17/2017 Status: F Source: [place] 12:00 AM [facility] Patient: CHINTAN PATEL : 1985 (32/F) Acct Num: [id number] Phys: Abner Zhu MD Unit Num: [id number] Loc: [facility] Specimen: [id number] Received: 06/17/17 - 1600 Spec Type: CERV TISSUES TISSUES: A. Uterine cervix, NOS B. Endocervical COMMENT A AND B. Results from immunohistochemistry ([id number]) for surrogate HPV marker ( p16) will be reported separately. GROSS DESCRIPTION A - Received in fixative is one container labeled with the patient's name and designated cervical biopsy. The specimen consists of one irregular fragment of light mercado soft tissue that measures 0.5 x 0.2 x 0.1 cm. The specimen is totally submitted in one cassette. B - Received in fixative is one container labeled with the patient's name and designated ECC. The specimen consists of multiple irregular fragments of light to dark mercado mucoid material that in aggregate measure 1.5 x 1 x <0.1 cm. The specimen is totally submitted in one cassette. / AM:rg 06/18/17 TC:5 CPT: 84410 x2 HEADER OPERATION: Colposcopy PRE-OP DIAGNOSIS: Pap ASCUS, HPV/HR positive TISSUE SUBMITTED: A. Cervical biopsy at 10 o clock, B. ECC MICROSCOPIC DESCRIPTION Slides are reviewed. MICROSCOPIC DIAGNOSIS A. Cervix at 10 o clock, biopsy: Mild, moderate and focal severe squamous dysplasia, MARY I-III (HGSIL). Changes consistent with HPV cytopathic effect. Squamous metaplasia and chronic inflammation. B. Endocervix, curettings: Strips squamous mucosa with mild and moderate squamous dysplasia, MARY I-II (HGSIL). Strips of benign superficial endocervix with squamous metaplasia. AM:jonas 06/19/17 Signed Navin Sharath 06/19/17 <signature on file> Performed By: #### PCER #### [facility] [address] [place], [address] IMMUNOHISTOCHEMISTRY Observed: 06/17/2017 Status: F Source: [place] 12:00 AM [facility] Patient: CHINTAN PATEL : 1985 (32/) Acct Num: [id number] Phys: Abner Zhu MD Unit Num: [id number] Loc: [facility] Specimen: [id number] Received: 06/19/17 - 9 Spec Type: IMMUNO TISSUES TISSUES: A. Uterine cervix, NOS B. Endocervical SPECIMEN INFORMATION: Tissue Source: A Cervical biopsy at 10 o clock, B - ECC Clinical Info: ASCUS, HPV,HR positive Specimen Number: [id number] A AND B CPT code: 63114 x2, 34328 x2 METHODOLOGY: Deparaffinized sections of prefer/formalin-fixed tissue or PAP/DQ stained slides are incubated with monoclonal/polyclonal antibodies/oligonucleotide probes. Localization is made via biotin free immunoperoxidase method. Appropriate controls are performed and reacted as expected. Results on target cell population are indicated in the following table: RESULTS: ANTIBODY / CLONE RESULT Block A P16 (E6H4) positive, block-like Ki-67 (30-9) positive, moderate Block B P16 (E6H4) positive, block-like Ki-67 (30-9) positive, moderate These tests were developed and their performance characteristics determined by [facility]. They may not have been cleared or approved by the U.S. Food and Drug Administration. The FDA has determined that such clearance or approval is not necessary. INTERPRETATION: A. Cervix at 10 o clock, biopsy: Severe squamous dysplasia, MARY III (HGSIL). B. ECC: Moderate squamous dysplasia, MARY II (HGSIL). AM:jonas 06/19/17 PHYSICIAN AND INSTITUTION [place] [address] [place], [place] [address] Signed Navin Sharath 06/19/17 <signature on file> Performed By: #### PIMM #### [facility] [address] [place] [address]. [place], [address] OPERATIVE REPORT Observed: 05/15/2017 Status: F Source: [place] [place] 7:29 AM [facility] Medical Records Department [address] [place] [address] Operative Report 05/15/17 0626 MR#: [id number] Acct: [id number] Name: CHINTAN PATEL Rep #: [id number] : 1985 32 From: Abner Zhu MD PCP: Care Physician, No Primary Status: [facility] Location: [place] [address] Problem List (1) Missed ab Status: Acute Report of Operation Date of Procedure: 05/15/17 Pre-Operative Diagnosis: Missed at 6 weeks Post-Operative Diagnosis: same Surgery/Procedure Performed:: Suction Dilation and Curettage Description of Surgical Findings:: 8 weeks size uterus, products of conception appropriate for US findings deputy editor in chief: None Type of Anesthesia:: MAC Anesthesiologist: Ja Puckett Special Medications: none Specimen's removed: Products of Conception Drains: none Estimated Blood Loss (mL): 50cc Fluids Replaced: 500cc LR Description of Procedure: Chintan was taken to the OR with IV running. She was given two grams of cefotetan as surgical prophylaxis. SCDs were in place and operational from the preoperative area through surgery and into recovery. MAC anesthesia was introduced without complication. She was then prepped and draped in the dorsal lithotomy position. A red rubber catheter was used to drain the bladder. A weighted speculum was placed in the posterior vagina. The cervix was identified and the anterior lip grasped with a single toothed tenaculum. The cervix was then serially dilated to 8mm without difficulty. A #7 suction curette was placed into the uterine cavity, suction applied and products of conception was obtained. A sharp curettage was then performed. The suction curette was replaced and the remaining products were removed. Bleeding was appropriate. All instruments were then removed. She was reversed from anesthesia and taken to the recovery room in stable condition. SHe has rH positive blood type. - Complications none - Admit VTE Documentation VTE Present on Admission: No VTE Mechan Device Prophylaxis: SCD's VTE Pharm Prophylaxis ordered?: No 05/15/17 0729 <Electronically signed by Abner Zhu MD> Date Abner Zhu MD CC: No Primary Care Physician; Abner Zhu MD Signed DISCHARGE INSTRUCTION Observed: 05/15/2017 Status: F Source: [place] 7:26 AM [facility] Medical Records Department [address] [place] [address] Instructions for Home/Discharge Instructions 05/15/17 0724 MR#: [id number] Acct: [id number] Name: CHINTAN PATEL Rep #: [id number] : 1985 32 From: Abner Zhu MD PCP: Care Physician, No Primary Status: REG SDC - Discharge Diagnoses Current Active Problems: Current Active and Chronic Problems Missed ab (Acute) You will use the following diet at home:: No restrictions Your food should be the consistency of: Regular Discharge Activity: Return to Normal Activity, May Drive, May not drive while taking narcotic pain medications., May Shower Return to work on:: 05/19/17 May shower in (days): 0 May resume sexual activity in: 3 weeks Call your doctor if your incision/area has: Sudden Increased Bleeding, Increased Pain/ Swelling, Foul Smelling Discharge Call your doctor if you observe: Fever of 101 or Higher, Inability to urinate, Inability to have a bowel movement, Using more than one pad per hour, Shortness of breath, Chest pain, Calf discomfort, Uncontrolled pain Cleanse incision/area with: Soap AND Water Allergies/Adverse Reactions: Allergies No Known Allergies Allergy (Verified 05/13/17 16:00) Medications to take at Discharge Ibuprofen [Motrin] 800 mg PO TID PRN PRN #30 tab 05/15/17 Oxycodone [Oxyir] 5 mg PO Q4H PRN PRN 7 Days #14 tab 05/15/17 The following prescriptions were given: Oxycodone [Oxyir] 5 mg PO Q4H PRN PRN 7 Days #14 tab PRN Reason: Severe Pain (-12/31) Ibuprofen [Motrin] 800 mg PO TID PRN PRN #30 tab PRN Reason: pain or cramping Primary Care Physician: Care Physician,No Primary [Primary Care Provider] - Please Follow Up With: Abner Zhu MD When: 1-2 weeks Proposed Discharge Date: 05/15/17 05/15/17 0726 <Electronically signed by Abner Zhu MD> Date Abner Zhu MD CC: No Primary Care Physician CBC-COMPLETE BLOOD CNT Collected: 05/15/2017 Status: F Source: [place] NO DIFF 6:10 AM [facility] TYPE CODE TESTS RESULT OUT OF RANGE REFERENCE UNITS LAB L100.1000 4.4-11.0 K/mm3 High WBC 11.5 LAB L100.1200 4.2-5.4 M/mm3 Normal RBC 4.51 LAB L100.1300 12.0-15.0 g/dl Normal HGB 13.8 LAB L100.1400 37-47 % Normal HCT 40.3 LAB L100.1500 81-99 fL Normal MCV 89.4 LAB L100.1600 27.0-32.0 pg Normal MCH 30.6 LAB L100.1700 32-36 g/gl Normal MCHC 34.2 LAB L100.1810 11.6-14.6 % Normal RDW CV 12.1 LAB L100.1820 35.1-43.9 fl Normal RDW SD 39.0 LAB L100.1900 150-450 K/mm3 Normal PLT 213 LAB L100.2000 6.2-12.0 fl Normal MPV 9.9 Performed By: #### L100.0500 #### [facility] [address] [place] [place], [address] TYPE AND SCREEN Collected: 05/15/2017 Status: F Source: [place] 6:10 AM [facility] Order Comment: Has pt arrived? Y Reason for Type AND Screen/Red Cells: SURGERY TYPE CODE TESTS RESULT OUT OF RANGE REFERENCE UNITS LAB B10.0800 AB Normal BLOOD TYPE GEL POSITIVE LAB B100.4000 Normal Antibody NEGATIVE Screen Performed By: #### B101.7450 #### [facility] [address] [place], [address] PRODUCTS OF CONCEPTION Observed: 05/15/2017 Status: F Source: [place] 12:00 AM [facility] Patient: CHINTAN PATEL : 1985 (32/) Acct Num: [id number] Phys: Abner Zhu MD Unit Num: [id number] [place] [facility] [place] Specimen: [id number] Received: 05/15/17 - 1110 Spec Type: PROD CONC TISSUES TISSUES: Product of conception, NOS GROSS DESCRIPTION Received in fixative is one container labeled with the patient's name and designated POC. The specimen consists of multiple pieces of mercado-pink soft tissue that in aggregate measure 7 x 6 x 2 cm. No tissue is identified. Securities Sales Associate tissue is submitted in two cassettes. / SILVIANO:jonas 05/15/17 TC:5 CPT: 92813 HEADER OPERATION: Suction dilation and curettage PRE-OP DIAGNOSIS: Missed TISSUE SUBMITTED: Products of conception MICROSCOPIC DESCRIPTION Slides are reviewed. MICROSCOPIC DIAGNOSIS Products of conception: Decidua, gestational endometrium and immature chorionic villi (products of conception). SILVIANO:jonas 05/16/17 Signed Abilio Anguiano 05/16/17 <signature on file> Performed By: #### PPOC #### [facility] [address] [place], [address] HCG TITER QUANT., Collected: 05/09/2017 Status: F Source: [place] SERUM 2:04 PM [facility] TYPE CODE TESTS RESULT OUT OF RANGE REFERENCE UNITS LAB L700.8000 <9 non-preg mIU/mL High HCG 926830 QUANT. Performed By: #### L700.8000 #### [facility] [address] [place], [address] HCG TITER QUANT., Collected: 05/06/2017 Status: F Source: [place] SERUM 2:42 PM [facility] TYPE CODE TESTS RESULT OUT OF RANGE REFERENCE UNITS LAB L700.8000 <9 non-preg mIU/mL High HCG 619317 QUANT. Performed By: #### L700.8000 #### [facility] [address] [facility] [address] [place], [place], [address] PROGESTERONE LEVEL Collected: 05/06/2017 Status: F Source: [place] 2:42 PM [facility] TYPE CODE TESTS RESULT OUT OF REFERENCE UNITS RANGE LAB L509.4001 See Comment ng/mL Progesterone Normal 24.57 Result Comment: Progesterone Reference Table: UNITS Female: Follicular 0.15 - 1.40 ng/mL Luteal 3.34 - 25.56 ng/mL Mid-luteal 4.44 - 28.03 ng/mL Postmenopausal 0.0 - 0.73 ng/mL : 1st Trimester 11.22 - 90.00 ng/mL 2nd Trimester 25.55 - 89.40 ng/mL 3rd Trimester 48.40 -422.50 ng/mL Performed By: #### L509.4001 #### [facility] [address] [place], [place], [address] CT/NG WCH BY PCR Collected: 05/06/2017 Status: F Source: [place] 2:10 PM [facility] TYPE CODE TESTS RESULT OUT OF RANGE REFERENCE UNITS LAB L8200.2100 Negative Normal Chlam Negative Trac PCR LAB L8200.2200 Negative Normal NG by Negative PCR Performed By: #### L8200.2000 #### [facility] [address] [facility] [facility] [address] [place], [place], [address] PAP I-G W/RFX HRHPV Collected: 05/06/2017 Status: F Source: [place] 2:10 PM [facility] RE[facility] Order Comment: CYTOLOGY INFORMATION: - CLINICAL INFORMATION: - DATE LMP/MENOPAUSE: 03/13/17 LMP - COLLECTION VIAL: Thin Prep Vial - CORDWAINER SOURCE: CERVICAL/ENDOCERVICAL - COLLECTION TECHNIQUE: BRUSH/SPATULA Specimen Comment: [id number] Specimen Comment: No. of containers..01 ThinPrep Vial TYPE CODE TESTS RESULT OUT OF REFERENCE UNITS RANGE LAB L7400.0800 . High DIAGN Comment Result Comment: EPITHELIAL CELL ABNORMALITY. ATYPICAL SQUAMOUS CELLS OF UNDETERMINED SIGNIFICANCE. LAB L7400.0900 . Normal ADEQ Comment Result Comment: Satisfactory for evaluation. Endocervical and/or squamous metaplastic cells (endocervical component) are present. LAB L7400.1400 . Normal PERFORM Comment Result Comment: Drew Howard, Broiler Manager (ASCP) LAB L7400.1700 . Normal SIGN Comment Result Comment: Vance Golden MD (Charles), Pathologist LAB L7400.1720 . Normal Path prov. Comment ICD9 Result Comment: R87.610 LAB L7400.2575 . Normal TEST METHOD Comment Result Comment: This liquid based ThinPrep(R) pap test was screened with the use of an image guided system. LAB L7400.2600 . Normal . COMM LAB L7400.2700 . Normal PAPSMR Comment Result Comment: The Pap smear is a screening test designed to aid in the detection of premalignant and malignant conditions of the uterine cervix. It is not a diagnostic procedure and should not be used as the sole means of detecting cervical cancer. Both false-positive and false-negative reports do occur. LAB L7400.2800 . Normal HPV RFLX Comment Result Comment: See below for HPV testing results. LAB L7400.2900 Negative High HPV HC,HGH Positive RISK Result Comment: This high-risk HPV test detects thirteen high-risk types (16/18/31/33/35/39/45/51/52/56/58/59/68) without differentiation. Performed at: [address] [place] [id number] Physical Metallurgist: Rosenda Thornton MD, Phone: [phone] Performed at: [facility] - [facility] [address] [place], [place] [id number] Physical Metallurgist: Aletha Phillips MD, Phone: [phone] Performed at: =G - [facility] [address] [place], [place] [id number] Physical Metallurgist: Aletha Phillips MD, Phone: [phone] Performed By: #### L7400.0350 #### [facility] (refer to report for specific site) refer to report for address and phone number DISCHARGE INSTRUCTION Observed: 04/28/2017 Status: F Source: [place] 3:01 AM [facility] RE[facility]IT[facility] Medical Records Department [address] [place] [address] Discharge Instruction 04/28/177 MR#: [id number] Acct: [id number] Name: CHINTAN PATEL Rep #: [id number] : 1985 32 From: Baudilio Huston MD PCP: NOT, DEFINED Status: DEP ER ED Disposition - Plan for ED Patient: Disposition: Home or Assisted Living Chief Complaint: Abd Pain Instructions: ED Preg Established Normal Sxs Prescriptions: Ondansetron [Zofran Odt] 4 mg PO Q4H PRN PRN #10 tab.rapdis PRN Reason: Nausea Referrals: Ingrid Pedroza MD [STAFF PHYSICIAN] - As soon as possible Additional Instructions: Zofran as needed for nausea. You have been diagnosed as at 6 weeks and 4 days. Call follow-up with RETURN CLERK physician for care. Stop smoking. What to do if you have Problems For any increased pain, shortness of breath, bleeding, nausea or vomiting, chest pain, or any unexpected problems, contact your Primary Care Provider. Call [facility] ([phone]) or report to the closest Emergency Room. Call 911 if necessary. 04/28/17 0301 <Electronically signed by Baudilio Huston MD> Date Baudilio Huston MD Cosigner Signature (If Indicated): Date CC: DEFINED NOT; No Primary Care Physician EMERGENCY DEPARTMENT Observed: 04/28/2017 Status: F Source: [place] SUMMARY 3:00 AM [facility] REPOSITORY [facility] Medical Records Department [address] [place] [address] Emergency Department Summary 04/27/17 2347 MR#: [id number] Acct: [id number] Name: CHINTAN PATEL Rep #: [id number] : 1985 32 From: Baudilio Huston MD PCP: NOT, DEFINED Status: DEP ER - ER Visit Summary Date of Service: 04/27/17 Chief Complaint: Abdominal pain with nausea and vomiting History of Present Illness: The patient is a 32 F. Past medical or surgical history. She has never been . Patient states for the last week he had intermittent sharp abdominal pain primarily suprapubic and periumbilical now it is in the epigastric region. Associated with nausea and vomiting. No hematemesis. No fever. No dysuria or hematuria. No vaginal bleeding or discharge she has never been before she states she was supposed to have her last menstrual period 2 weeks ago and missed it. She denies any fever. She denies any diarrhea or constipation. Physical Examination: 32-year-old female no acute distress. Vital signs are stable afebrile. Blood pressure 111/64. HEENT exam mildly dry mucous membranes. Neck nontender no lymphadenopathy. Lungs clear to auscultation bilaterally. Heart regular rhythm no murmur. Abdomen is soft and nondistended. No signs of obstruction. She has mild tenderness in the epigastric region and periumbilically. There is no hernia or masses. Normal bowel sounds. Both the right upper right lower quadrants are unremarkable. There are no peritoneal signs. She is moving all 4 extremities. Skin is unremarkable. Back is nontender no CVA tenderness. Neurologic exam is normal. Test Results: CBC shows a white count 11.5. Normal H AND H. BMP unremarkable. Normal creatinine and gap. Liver enzymes are normal except for total bilirubin of 1.1. Lipase normal 131. UA shows blood on the macroscopic and ketones. However no signs of infection. Serum test is positive. Due to the test being positive and her abdominal pain I am obtaining a pelvic ultrasound and a quantitative hCG. Quantitative hCG returned at 42,397. Transvaginal pelvic ultrasound showed a single live IUP at 6 weeks and 4 days. With a heart rate of 105. Emergency Department Course and Treatment: Patient be treated with IV fluids and IV Zofran. Lab work will be obtained along with urinalysis. Treatment Plan: Repeat exam the patient is doing well at 0127. I went over all test results of both her and her significant other and we are waiting the ultrasound. Patient is doing well at 02 37 will be discharged home. Disposition: Discharge Impression: Abdominal pain with nausea and vomiting Newly diagnosed at 6 weeks and 4 days This note was generated with [employer] dictation software. It may contain incorrect words, spelling, and punctuation that were not noted in review of the chart prior to signing ED Disposition - Plan for ED Patient: Chief Complaint: Abd Pain Referrals: NOT,DEFINED [Primary Care Provider] - What to do if you have Problems For any increased pain, shortness of breath, bleeding, nausea or vomiting, chest pain, or any unexpected problems, contact your Primary Care Provider. Call [facility] ([phone]) or report to the closest Emergency Room. Call 911 if necessary. 04/28/17 0300 <Electronically signed by Baudilio Huston MD> Date Baudilio Huston MD Cosigner Signature (If Indicated): Date CC: DEFINED NOT; No Primary Care Physician TRANSVAGINAL W/PREG US Observed: 04/28/2017 Status: F Source: [place] 1:23 AM [facility] REPOSITORY [facility] Imaging Services [address] [place] [address] Transvaginal w/Preg US MR#: [id number] Acct: [id number] Name: CHINTAN PATEL Rep #: [id number] : 1985 F 32 From: Gerard Atkinson MD PCP: NOT, DEFINED Status: DEP Study: Transvaginal w/Preg US Date of Exam: 04/28/17 Exam# [id number] Ordering Dr: Baudilio Huston MD STUDY: FIRST TRIMESTER OBSTETRICAL ULTRASOUND REASON FOR EXAM: Female, 32 years old. Pain, beta-hCG levels 42,000 LMP: 03/20/2017 TECHNIQUE: PRIOR ULTRASOUND: None. FINDINGS: There is visualization of a single gestational sac in a normal intrauterine position. The mean sac diameter (MSD) measures 1.92 cm, indicating an estimated gestational age (EGA) of 6 weeks, 6 days. The gestational sac shape is within normal limits. There is a visualized yolk sac. The yolk sac measures 3.8 mm. The placenta is non-visualized. There is visualization of a live embryo. The crown-rump length (CRL) measures 4.2 mm, indicating an estimated gestational age (EGA) of 6 weeks, 1 days. There is demonstrated cardiac activity with a heart rate of 105 bpm. The estimated gestation age (EGA) by LMP is 5 weeks, 4 days. The estimated date of delivery (SHAWNEE) by LMP is 12/25/2017. The estimated gestation age (EGA) by US is 6 weeks, 4 days. The estimated date of delivery (SHAWNEE) by US is 12/18/2017. The uterus measures 9.6 x 4.7 x 4.7 centimeters. There is no demonstrated uterine fibroid. The cervix is closed. The right ovary measures 3.6 x 2.5 x 1.6 cm. There is no right ovarian cyst. There is no visualized right adnexal mass or complex lesion. The left ovary measures 4.1 x 3.2 x 2.5 cm. There is no left ovarian cyst. There is no visualized left adnexal mass or complex lesion. There is no fluid in the cul de sac. US/Transvaginal w/Preg US IMPRESSION: Intrauterine gestation with sonographic age of 6 weeks 4 days. Cervix is closed. Positive cardiac activity. Electronically Signed: Gerard Atkinson MD at 3:26 EST Tel , Service support , CC: DEFINED NOT; Baudilio Huston MD Film Librarian: Signed URINALYSIS, COMPLETE Collected: 04/28/2017 Status: F Source: [place] 12:14 AM [facility] REPOSITORY Order Comment: How was Urine Obtained? CLEAN CATCH TYPE CODE TESTS RESULT OUT OF RANGE REFERENCE UNITS LAB L400.3000 Yellow COLOR Normal Yellow LAB L400.3050 Clear Normal CLARITY Clear LAB L400.3200 Normal mg/dl Normal GLUCOSE, UR Normal LAB L400.3300 Negative mg/dL Normal BILIRUBIN URINE Negative LAB L400.3400 Negative mg/dl High KETONE UR 150 Result Comment: CRITICAL VALUE *H CRITICAL VALUE VERIFIED. CALLED TO [facility] 04/28/17 0038 Jyoti Avila. RESULTS READ BACK BY SAME . LAB L400.3465 1.002-1.030 Normal SP.GR. DIPSTX 1.025 LAB L400.3550 5.0 - 8.0 pH Normal UR 6.0 LAB L400.3600 Negative mg/dl High 15 PROT DIPSTX LAB L400.3700 Normal mg/dl Normal UROBILI Normal LAB L400.3750 Negative Normal NITRITE UR Negative LAB L400.3780 Negative /ul High OCCULT 150 BLOOD-UR LAB L400.3800 Negative /ul Normal LEUK ESTERASE Negative LAB L400.4050 0-5 /hpf 0 Normal WBC SEEN LAB L400.4100 0-5 /hpf Normal RBC-UA 0-5 SEEN LAB L400.4150 5-10 /hpf Normal SQUAM EPI 0-5 SEEN LAB L400.4300 None Seen /hpf 0 Normal BACTERIA SEEN LAB L400.4350 <or=2+ /hpf 3+ Normal MUCUS, URINE Performed By: #### L400.0001 #### [facility] [address] [place], [address] HCG TITER QUANT., Collected: 04/28/2017 Status: F Source: [place] SERUM 12:12 AM [facility] REPOSITORY TYPE CODE TESTS RESULT OUT OF RANGE REFERENCE UNITS LAB L700.8000 <9 non-preg mIU/mL High HCG 84390 QUANT. Performed By: #### L700.8000 #### [facility] [address] [place], [place], [address] CBC W/DIFF, AUTOMATED Collected: 04/27/2017 Status: F Source: [place] 12:12 AM [facility] REPOSITORY TYPE CODE TESTS RESULT OUT OF RANGE REFERENCE UNITS LAB L100.1000 4.4-11.0 K/mm3 High WBC 11.5 LAB L100.1200 4.2-5.4 M/mm3 Low RBC 4.19 LAB L100.1300 12.0-15.0 g/dl Normal HGB 12.8 LAB L100.1400 37-47 % Normal HCT 37.2 LAB L100.1500 81-99 fL Normal MCV 88.8 LAB L100.1600 27.0-32.0 pg Normal MCH 30.5 LAB L100.1700 32-36 g/gl Normal MCHC 34.4 LAB L100.1810 11.6-14.6 % Normal RDW CV 12.3 LAB L100.1820 35.1-43.9 fl Normal RDW SD 39.3 LAB L100.1900 150-450 K/mm3 Normal PLT 191 LAB L100.2000 6.2-12.0 fl Normal MPV 10.1 LAB L100.2100 47-70 % High NEUT% 73.7 LAB L100.2200 19-41 % Normal LY% 20.0 LAB L100.2300 0-10 % Normal MONO% 5.7 LAB L100.2400 0-5 % Normal EO% 0.3 LAB L100.2500 0-1 % Normal BASO% 0.1 LAB L100.2550 0.0-0.9 % Normal IM GRAN % 0.200 Result Comment: IG% - Immature Granulocytes (promyelocytes, myelocytes and metamyelocytes) > 1% indicates that a LEFT SHIFT is Present. LAB L100.2620 2.0-7.7 X10 3/uL High Absolute Neut 8.5 LAB L100.2720 0.83-4.51 X10 3/ul Normal Absolute Lymph 2.30 Performed By: #### L100.0100 #### [facility] [address] [place], [place], [address] BASIC METABOLIC Collected: 04/27/2017 Status: F Source: [place] PROFILE (BMP) 12:12 AM [facility] REPOSITORY TYPE CODE TESTS RESULT OUT OF RANGE REFERENCE UNITS LAB L501.0100 74-106 mg/dL Normal GLU 87 LAB L501.1000 7-18 mg/dL Normal BUN 8 LAB L501.1100 0.55-1.02 mg/dL Normal 0.56 CREAT,SERUM Result Comment: The validity of the calculated GFR AND GFRAA in patients over 70 years has not been determined. Clinical correlation is essential. LAB L501.1110 >60 mL/min Normal EST GFR 134 Result Comment: Non- GFR Calc LAB L501.1115 >60 mL/min Normal EST GFR - AA 162 Result Comment: GFR Calc LAB L501.1255 ml/min Normal Estimated CRCL 105.51 LAB L501.1300 10-20 RATIO BUN/CRE Normal 14.2 LAB L501.2200 8.5-10 mg/dL Low .1 CA 8.2 LAB L501.5300 136-14 mmol/L 5 NA Normal 140 LAB L501.5600 3.5-5. mmol/L Low 1 K 3.4 LAB L501.5900 98-107 mmol/L High CL 108 LAB L501.6100 21.0-3 mmol/L 2.0 CO2 Normal 25.0 LAB L501.6200 5-15 GAP Normal 7 Performed By: #### L500.2500, L500.3400, L501.2450 #### [facility] [place], [address] LIVER PROFILE Collected: 04/27/2017 Status: F Source: [place] 12:12 AM [facility] REPOSITORY TYPE CODE TESTS RESULT OUT OF RANGE REFERENCE UNITS LAB L501.1500 6.4-8.2 g/dL Normal T PROT 6.5 LAB L501.1800 3.2-5.0 g/dL Normal ALB 3.3 LAB L501.1950 2.2-4.2 g/dL Normal GLOB 3.2 LAB L501.4100 15-37 U/L Normal AST 15 LAB L501.4305 45-117 U/L Normal ALK P 45 LAB L501.4405 13-56 U/L Normal ALT 20 Result Comment: Please note revised ALT reference range effective 2017. LAB L501.4600 0.20-1.00 mg/dL High T BILI 1.10 LAB L501.4700 0.00-0.30 mg/dL Normal D BILI 0.21 Performed By: #### L500.2500, L500.3400, L501.2450 #### [facility] [address] [place], [address] LIPASE Collected: 04/27/2017 Status: F Source: [place] 12:12 AM [facility] REPOSITORY TYPE CODE TESTS RESULT OUT OF RANGE REFERENCE UNITS LAB L501.2450 73-393 U/L Normal LIPASE 131 Performed By: #### L500.2500, L500.3400, L501.2450 #### [facility] [address] [place], [address] ,SERUM,HCG QUALI. Collected: Status: F Source: [place] 04/27/2017 12:12 AM [facility] REPOSITORY TYPE CODE TESTS RESULT OUT OF REFERENCE UNITS RANGE LAB L700.7000 0-9 Nonpreg Negative High HCGSQUAL POSITIVE Result Comment: Critical Result(s) Called at: 01:07:20 04/28/2017 by: JYOTI PRUITT RN ED TEST is *POSITIVE* LAB L700.6700 =>Qualitative mIU/mL Normal HCG Qual triggr 15053 Result Comment: Critical Result(s) Called at: 01:07:20 04/28/2017 by: JYOTI PRUITT RN ED Performed By: #### L700.6800 #### [facility] [address] [place], [address] ALLERGIES ALLERGIES DATE TYPE / CODE NAME / CODE REACTION SEVERITY SOURCE 02/19/[address] [facility] Allergy/4160 Allergies/F00 Hospital 05368(SNOMED 8660370(RXNOR Repository CT) M) ENCOUNTERS ENCOUNTERS ADMIT/DISCHARGE ACCOUNT ADMITTING ENCOUNTER LOCATION SOURCE NUMBER CLASS 02/19/2018/11/29 [id number] [place] 8 3 [facility] ing:ED Repository 12/16/2017 [id number] Ambulatory [place] 2 [facility] ing:LABSPEC Repository 10/24/2017/ [id number] Emergency [place] 8 3 [facility] ing:ED Repository 07/22/2017/ [id number] Ambulatory [place] 8 7 [facility] ing:SDCRoom: Repository AC03 07/20/2017 [id number] Ambulatory [place] 1 [facility] ing:LAB Repository 06/17/2017 [id number] Ambulatory [place] 7 [facility] ing:LABSPEC Repository 05/15/2017/ [id number] Ambulatory [place] 8 4 [facility] ing:SDC Repository 05/09/2017 [id number] Ambulatory [place] 9 [facility] ing:WOBLAB Repository 05/06/2017 [id number] Ambulatory [place] 3 [facility] ing:WOBLAB Repository 04/27/2017/ [id number] Emergency [place] 8 3 [facility] ing:ED Repository PAYERS PAYERS ENCOUNTER GUARANTOR PAYER SUBSCRIBER SOURCE 02/19/2018 SHANE PATEL321 Primary SHANE Jose [place] [address] Insurance:ANTHEMPolic [place] Number: [id number] [facility] [address]Gwi: NONE [id number] Repository () Date:[id number] [address]AT: 02/19/2018 Secondary NOT GIVENUNK [place] Insurance:SELF PAY [facility] Number: Effective Repository Date:2018-02-19 12/16/2017 SHANE PATEL321 Primary SHANE Jose [place] [address] Insurance:ANTHEMPolic [place]WM[place]OB: [place] Number: [id number] [facility] [address]Vqe: 802 [id number] Repository [phone] () Date:4369-34-42[address] [place] [address]XI: 12/16/2017 Secondary NOT GIVENUNK [place] Insurance:SELF PAY [facility] Number: Effective Repository Date:2017-12-16 10/24/2017 SHANE PATEL321 Primary SHANE E [place] [address] Insurance:ANTHEMPolic NEWMANDOB: [facility] [place] Number: [id number] Hospital [address]Ybu: (802) [id number] Repository [phone] () Date:0559-65-13NL [address] [place] [address] [place] [address]PK: 10/24/2017 Secondary NOT GIVENUNK [place] Insurance:SELF PAY [facility] Number: Effective Repository Date:2017-10-24 07/22/2017 SHANE PATEL321 Primary SHANE E [place] [address] Insurance:ANTHEMPolic NEWMANDOB: [facility] [place] Number: [id number] Hospital [address]Mzf: (802 [id number] Repository [phone] () Date:7417-32-72FP [address] [place] [address]OT: 07/22/2017 Secondary NOT GIVENUNK [place] Insurance:SELF PAY [facility] Number: Effective Repository Date:2017-06-26 07/20/2017 SHANE PATINO1 Primary SHANE E [place] [address] Insurance:ANTHEMPolic NEWMANDOB[facility] [place]: [id number] Hospital [address]Cda: (802 [id number] Repository [phone] () Date:3256-07-73TT [address] [place] [address] [place] [address]WO: 07/20/2017 Secondary NOT GIVENUNK [place] Insurance:SELF PAY [facility] Number: Effective Repository Date:2017-07-17 06/17/2017 Shane Patino1 Primary Shane E [place] Insurance:[place] Number: [id number] [address]Qjh: (672 [id number] Repository [phone] () Date:0938-79-48HR [address] [place] [address] [place] [address]GK: 06/17/2017 Secondary NOT GIVENUNK [place] Insurance:SELF PAY [facility] Number: Effective Repository Date:2017-06-17 05/15/2017 Shane Patel321 Primary Shane E [place] Insurance:[place]olic [place] Number: [id number] [facility] [address]Apf: (802) [id number] Repository [phone] () Date:6220-84-16PG [address] [place] [address] [place] [address]TU: 05/15/2017 Secondary NOT GIVENUNK [place] Insurance:SELF PAY [facility] Number: Effective Repository Date:2017-05-13 05/09/2017 Shane Patel321 Primary Shane E [place] Insurance:[place]olic [place] Number: [id number] Hospital [address]Cwy: (802) [id number] Repository [phone] () Date:5193-06-22VH [id number] [place] [address]TT: 05/09/2017 Secondary NOT GIVENUNK [place] Insurance:SELF PAY [facility] Number: Effective Repository Date:2017-05-09 05/06/2017 Shane Patel321 Primary Shane E [place] Insurance:[place]olic [place] Number: [id number] [facility] [address]Ssi: (802) [id number] Repository [phone] () Date:1677-91-28EY [address] [place] [address]EB: 05/06/2017 Secondary NOT GIVENUNK [place] Insurance:SELF PAY [facility] Number: Effective Repository Date:2017-05-06 04/27/2017 Shane Garcia Ol[address]311 Primary Shane [place] [facility] Insurance:ANTHEMPolic JorgeDOB: [facility] Number: [id number] Hospital [address]Vgt: (905) [id number] Repository [phone] () Date:4925-39-33JX [address], [place] [address]YZ: 04/27/2017 Secondary NOT GIVENYANI [place] Insurance:SELF PAY [facility] Number: Effective Repository Date:2017-04-27
== END 2018-02-19 14:13 | disposition home or self-care (01) ==
PROVIDERS: Emergency Provider Emergency Medicine
DX: S60.212A Contusion of left wrist, initial encounter (principal); X58.XXXA Exposure to other specified factors, initial encounter; Y93.9 Activity, unspecified; Y92.9 Unspecified place or not applicable; Y99.9 Unspecified external cause status; Z72.0 Tobacco use
CPT/HCPCS: 73110; 99283

== ENCOUNTER 2018-07-23 10:40 | Outpatient (RCR) | payer BC, SELFPAY ==
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
--- NOTE | 2018-08-31 16:39 | HP.PT.NRP ---
HP - Discharge Summary (1) - Patient Information CHINTAN LIVINGSTON was seen in my office for initial evaluation on 07/23/18. The following Plan of Care was established for this patient: Initial Frequency: 2-3x /Week Initial Duration: 2-4 Weeks - Anticipated Interventions Patient/Client Instruction: Educate patient on: Condition, Plan of Care, Risk Factors, Benefits of Fitness Program For the Purpose of:: To improve self management Therapeutic Exercise to Include: Strength training, Agility training, Flexibilty training For the Purpose of:: To decrease pain, To increase ROM, To improve muscle performance and motor function, To increase tolerance to activity/condition/position, To improve ability of physical actions for home/community/work/leisure Cryotherapy (ice pack, ice massage): Yes Thermo therapy (hot pack): Yes Ultrasound (thermal/non thermal): Yes For the Purpose of:: To decrease pain, To increase ROM, To improve nutrient delivery to tissue This patient was last seen in our office 07/23/18. Pertinent comments regarding their Physical therapy will appear below: This patient has not returned to Physical Therapy and is appropriate to return to MD for further follow-up as needed. At this point I will be discontinuing this patient from physical therapy. I would be happy to see this patient again in the future if found appropriate by the physician. Thank you! Sandra Fernandez, PT, Cert MDT
== END 2018-07-23 19:00 | disposition home or self-care (01) ==
LOC: PT 10:40
DX: M25.561 Pain in right knee (principal)
CPT/HCPCS: 97162

== ENCOUNTER → 2019-03-22 13:50 | Outpatient (CLI) | payer BC, SELFPAY | PROVIDERS: Referring Provider Obstetrics & Gynecology; Visit Provider Obstetrics & Gynecology | DX: N92.6 Irregular menstruation, unspecified (principal) | CPT/HCPCS: 36415; 84702 ==

== ENCOUNTER → 2019-03-31 12:26 | Outpatient (CLI) | payer BC, SELFPAY ==
--- NOTE | 2019-03-31 12:27 | US_ITS ---
STUDY: FIRST TRIMESTER OBSTETRICAL ULTRASOUND REASON FOR EXAM: Female, 33 years old initial ob LMP: February 06, 2019. TECHNIQUE: Transabdominal TECHNICAL QUALITY: Adequate. PRIOR ULTRASOUND: None. FINDINGS: There is visualization of a single gestational sac in a normal intrauterine position. The mean sac diameter (MSD) measures 3.34 cm, indicating an estimated gestational age (EGA) of 8 weeks, 4 days. The gestational sac shape is within normal limits. There is a visualized yolk sac. The yolk sac measures 5 mm. The placenta is non-visualized. There is visualization of a live embryo. The crown-rump length (CRL) measures 1.51 cm, indicating an estimated gestational age (EGA) of 7 weeks, 6 days. There is demonstrated cardiac activity with a heart rate of 167 bpm. The estimated gestation age (EGA) by LMP is 7 weeks, 4 days. The estimated date of delivery (SHAWNEE) by LMP is November 13, 2019. The estimated gestation age (EGA) by US is 8 weeks, 1 days. The estimated date of delivery (SHAWNEE) by US is November 09, 2019. The uterus measures 9.6 cm x 7.1 cm x 6.0 cm. There is no demonstrated uterine fibroid. The cervix is closed. The right ovary measures 3.2 cm x 2.3 cm x 1.5 cm. There is no right ovarian cyst. There is no visualized right adnexal mass or complex lesion. The left ovary measures 4.3 cm x 2.1 cm x 1.7 cm. There is no left ovarian cyst. There is no visualized left adnexal mass or complex lesion. There is no fluid in the cul de sac. US/Init OB < 14Wks US IMPRESSION: There is a single live uterine gestation with a mean gestational age of 8 weeks and 1 day. Electronically Signed: León Calle, at 15:55 EST , Service support ,
== END ==
PROVIDERS: Referring Provider Obstetrics & Gynecology; Visit Provider Obstetrics & Gynecology
DX: Z34.90 Encounter for supervision of normal pregnancy, unspecified, unspecified trimester (principal)
CPT/HCPCS: 76801

== ENCOUNTER → 2019-04-08 16:57 | Outpatient (CLI) | payer BC, SELFPAY ==
[2019-04-08 09:40] VITALS: BMI 23.8
[2019-04-08 19:29] LABS: Amphetamine Urine VISTA NEGATIVE (<1000 ng/mL); Barbiturate Urine VISTA NEGATIVE (< 200 ng/mL); Benzodiazepine Urine VISTA NEGATIVE (< 200 ng/mL); Cocaine Urine VISTA NEGATIVE (< 300 ng/mL); Ecstacy Urine VISTA NEGATIVE (< 500 ng/mL); Methadone Urine VISTA NEGATIVE (< 300 ng/mL); PCP Urine VISTA NEGATIVE (< 25 ng/mL); THC Urine VISTA POSITIVE (< 50 ng/mL); Vista UDS pH Range 5
[2019-04-08 20:04] LABS: Chlamydia Trachomatis by PCR Negative (Negative); Neisserai gonorrhoeae by PCR Negative (Negative); Probe Check PASS; Sample Adequacy Control PASS; Specimen Processing Control PASS
[2019-04-13 15:44] LABS: HPV APTIMA, High Risk Negative (Negative)
== END ==
LOC: LABSPEC 16:58
PROVIDERS: Referring Provider Obstetrics & Gynecology; Visit Provider Obstetrics & Gynecology
DX: Z34.90 Encounter for supervision of normal pregnancy, unspecified, unspecified trimester (principal); Z12.4 Encounter for screening for malignant neoplasm of cervix
CPT/HCPCS: 80307; 87086; 87491; 87591; 87624; 88175; G0145

== ENCOUNTER → 2019-04-13 15:39 | Outpatient (CLI) | payer BC, SELFPAY ==
[2019-04-08 09:40] VITALS: BMI 23.8
[2019-04-13 16:32] LABS: Absolute Lymphocyte Count 2.72 X10^3/uL (0.83-4.51); Basophil# 0.03 X10^3/uL; Basophil% 0.2 % (0-1); Hematocrit 38.7 % (37-47); Hemoglobin 13.6 g/dL (12.0-15.0); Lymphocyte # 2.72 X10^3/ul (4.0); Lymphocyte % 19.7 % (19-41); Mean Corp Hgb Conc 35.1 g/dL (32-36); Mean Corpuscular Hgb 31.3 pg (27.0-32.0); Mean Platelet Vol. 10.4 fl (6.2-12.0); Monocyte% 7.2 % (0-10); NRBC Flagged by Analyzer 0 % (0-5); Neutrophil # 10.02 X10^3/uL (2.7-7.7); Neutrophil % 72.5 % (47-70); Platelet Count 226 K/mm3 (150-450); RBC Distribution Width CV 11.5 % (11.6-14.6); Red Blood Count 4.35 M/mm3 (4.2-5.4); White Blood Count 13.8 K/mm3 (4.4-11.0)
[2019-04-14 09:25] LABS: HIV - WCH Non-Reactive (Nonreactive); Hepatitis B Surface Antigen Non-Reactive (Nonreactive); Hepatitis C Antibody Non-Reactive (Nonreactive); Rubella IgG > 500.0 IU/mL
[2019-04-15 01:51] LABS: Rapid Plasmin Reagin (RPR) NONREACTIVE (NONREACTIVE)
== END ==
LOC: LAB 15:40
PROVIDERS: Referring Provider Obstetrics & Gynecology; Visit Provider Obstetrics & Gynecology
DX: Z34.90 Encounter for supervision of normal pregnancy, unspecified, unspecified trimester (principal)
CPT/HCPCS: 36415; 85025; 86592; 86703; 86762; 86803; 86850; 86900; 86901; 87340

== ENCOUNTER → 2019-06-04 | Outpatient (CLI) | payer BC, SELFPAY ==
[2019-06-04 13:59] VITALS: BMI 23.8
[2019-06-04 18:23] LABS: Amphetamine Urine VISTA NEGATIVE (<1000 ng/mL); Barbiturate Urine VISTA NEGATIVE (< 200 ng/mL); Benzodiazepine Urine VISTA NEGATIVE (< 200 ng/mL); Cocaine Urine VISTA NEGATIVE (< 300 ng/mL); Ecstacy Urine VISTA NEGATIVE (< 500 ng/mL); Methadone Urine VISTA NEGATIVE (< 300 ng/mL); PCP Urine VISTA NEGATIVE (< 25 ng/mL); THC Urine VISTA NEGATIVE (< 50 ng/mL); Vista UDS pH Range 6
== END | disposition home or self-care (01) ==
LOC: LABSPEC 17:52
PROVIDERS: Visit Provider Obstetrics & Gynecology
DX: F12.10 Cannabis abuse, uncomplicated (principal)
CPT/HCPCS: 80307

== ENCOUNTER → 2019-07-07 07:48 | Outpatient (CLI) | payer BC, SELFPAY ==
[2019-06-04 13:59] VITALS: BMI 23.8
--- NOTE | 2019-07-07 07:51 | US_ITS ---
STUDY: SECOND AND THIRD TRIMESTER OBSTETRICAL ULTRASOUND REASON FOR EXAM: Female, 34 years old anatomy LMP: February 05, 2019 TECHNIQUE: Transabdominal TECHNICAL QUALITY: Adequate. PRIOR ULTRASOUND: Comparison is made with prior study dated March 31, 2019. FINDINGS: There is a single intrauterine fetus. The fetus is in a breech presentation. There is demonstrated cardiac activity with a heart rate of 155 bpm. There is a normal amniotic fluid volume. The largest amniotic fluid pocket measures 4.6 cm x 2.9 cm. The amniotic fluid index (ANTHONY) is within normal limits. The placenta is anterior in location and is not low lying. There are Grade 0 placental changes. The cervix measures 4.5 cm in length. The bilateral adnexal regions are normal. BIOMETRY: BPD: 5.11 cm: 21 weeks, 3 days HC: 19.6 cm: 21 weeks, 6 days AC: 18.38 cm: 23 weeks, 1 days FL: 3.48 cm: 20 weeks, 6 days CI: 77.5% FL/BPD: 68% FL/HC: FL/AC: 19% HC/AC: 1.07 age by current US: 21 weeks, 6 days. SHAWNEE by current US: November 11, 2019. Estimated weight: 480 grams, +/- 71 grams, 72 %. age by prior US: 22 weeks, 1 days. SHAWNEE by prior US: November 09, 2019. Age by LMP: 21 weeks, 4 days. SHAWNEE by LMP: November 13, 2019. ANATOMY: Gender: Male Cranium: Normal lateral ventricles. Normal choroid plexus. Normal cerebellum. Normal cisterna magna. Normal face, nose and lips. Chest: Normal 4-chamber heart. Abdomen/Pelvis: Normal diaphragm. Normal stomach. Normal abdominal wall. Normal cord insertion. Normal 3 vessel cord. Normal kidneys. Normal bladder. Spine: Normal cervical spine. Normal thoracic spine. Normal lumbar spine. Normal sacrum. Extremities: Normal bilateral upper extremities. Normal bilateral lower extremities. US/OB Anatomy Scan IMPRESSION: Single live intrauterine gestation with a mean gestational age of 22 weeks and 1 day. The measurements obtained today follow-up within normal expected range. Electronically Signed: León Calle, at 10:06 EDT , Service support ,
== END ==
LOC: OPUS 07:51
PROVIDERS: Referring Provider Obstetrics & Gynecology; Visit Provider Obstetrics & Gynecology
DX: Z34.90 Encounter for supervision of normal pregnancy, unspecified, unspecified trimester (principal)
CPT/HCPCS: 76805

== ENCOUNTER → 2019-08-23 13:26 | Outpatient (CLI) | payer BC, SELFPAY ==
[2019-08-02 13:57] VITALS: BMI 23.8
== END ==
PROVIDERS: Referring Provider Obstetrics & Gynecology; Visit Provider Obstetrics & Gynecology
DX: Z34.90 Encounter for supervision of normal pregnancy, unspecified, unspecified trimester (principal)

== ENCOUNTER → 2019-08-25 11:11 | Outpatient (CLI) | payer BC, SELFPAY ==
[2019-08-23 13:55] VITALS: BMI 23.8
[2019-08-25 12:21] LABS: Absolute Lymphocyte Count 1.57 X10^3/uL (0.83-4.51); Absolute Neutrophil Count 10.9 X10^3/uL (2.0-7.7); Basophil# 0.03 X10^3/uL; Basophil% 0.2 % (0-1); Hematocrit 33.9 % (37-47); Hemoglobin 11.7 g/dL (12.0-15.0); Lymphocyte # 1.57 X10^3/ul (4.0); Lymphocyte % 11.7 % (19-41); Mean Corp Hgb Conc 34.5 g/dL (32-36); Mean Corpuscular Hgb 32.7 pg (27.0-32.0); Mean Corpuscular Volume 94.7 fL (81-99); Mean Platelet Vol. 11.1 fl (6.2-12.0); Monocyte# 0.79 X10^3/uL; Monocyte% 5.9 % (0-10); NRBC Flagged by Analyzer 0 % (0-5); Neutrophil # 10.93 X10^3/uL (2.7-7.7); Neutrophil % 81.5 % (47-70); Platelet Count 182 K/mm3 (150-450); RBC Distribution Width SD 41.3 fl (35.1-43.9); Red Blood Count 3.58 M/mm3 (4.2-5.4); White Blood Count 13.4 K/mm3 (4.4-11.0)
[2019-08-25 12:56] LABS: Glucose Challenge Gest 1H 50g 149 mg/dL (70-140)
== END ==
LOC: LAB 11:14
PROVIDERS: Nurse Practitioner Women's Health; Visit Provider Obstetrics & Gynecology
DX: Z34.90 Encounter for supervision of normal pregnancy, unspecified, unspecified trimester (principal)
CPT/HCPCS: 36415; 82950; 85025

== ENCOUNTER → 2019-09-01 09:52 | Outpatient (CLI) | payer BC, SELFPAY ==
[2019-08-23 13:55] VITALS: BMI 23.8
[2019-09-01 11:02] LABS: Glucose GTT-Gestation. Fasting 89 mg/dL (<105)
[2019-09-01 11:41] LABS: Glucose GTT-Gestational 1 Hr 173 mg/dL (<190)
[2019-09-01 13:42] LABS: Glucose GTT-Gestational 3 Hr 101 L (<145)
[2019-09-01 13:44] LABS: Glucose GTT-Gestational 2 Hr 111 mg/dL (<165)
== END ==
LOC: LAB 09:53
PROVIDERS: Referring Provider Nurse Practitioner Women's Health; Visit Provider Nurse Practitioner Women's Health
DX: O99.810 Abnormal glucose complicating pregnancy (principal); Z3A.00 Weeks of gestation of pregnancy not specified
CPT/HCPCS: 36415; 82951; 82952

== ENCOUNTER → 2019-09-23 14:58 | Outpatient (CLI) | payer BC, SELFPAY ==
[2019-09-23 14:21] VITALS: BMI 29.0
[2019-09-23 16:04] LABS: Absolute Lymphocyte Count 2.03 X10^3/uL (0.83-4.51); Absolute Neutrophil Count 9.7 X10^3/uL (2.0-7.7); Basophil# 0.02 X10^3/uL; Basophil% 0.2 % (0-1); Hematocrit 32.9 % (37-47); Lymphocyte # 2.03 X10^3/ul (4.0); Lymphocyte % 16.1 % (19-41); Mean Corp Hgb Conc 33.4 g/dL (32-36); Mean Corpuscular Hgb 31.4 pg (27.0-32.0); Mean Platelet Vol. 11.2 fl (6.2-12.0); Monocyte# 0.78 X10^3/uL; Monocyte% 6.2 % (0-10); NRBC Flagged by Analyzer 0 % (0-5); Neutrophil # 9.67 X10^3/uL (2.7-7.7); Neutrophil % 76.4 % (47-70); Platelet Count 204 K/mm3 (150-450); RBC Distribution Width CV 12.2 % (11.6-14.6); RBC Distribution Width SD 41.4 fl (35.1-43.9); White Blood Count 12.6 K/mm3 (4.4-11.0)
[2019-09-23 16:56] LABS: ALB/GLOB Ratio 0.7 RATIO (0.9-2.4); AST(SGOT) 15 U/L (15-37); Alanine Aminotransfer ALT/SGPT 25 U/L (13-56); Albumin, Serum 2.6 g/dL (3.2-5.0); Alkaline Phosphatase 81 U/L (45-117); Anion Gap 8 (5-15); BUN 10 mg/dL (7-18); BUN/Creat Ratio 14.5 RATIO (10-20); Calcium,Total 8.6 mg/dL (8.5-10.1); Chloride 106 mmol/L (98-107); Creatinine, Serum 0.69 mg/dL (0.55-1.02); EST Glomerular Filtration Rate 105 mL/min (>60); Est Glom Filt Rate - Afr Amer 127 mL/min (>60); Globulin 3.7 g/dL (2.2-4.2); Glucose 101 mg/dL (74-106); Lipase 151 U/L (73-393); Potassium 3.5 mmol/L (3.5-5.1); Protein, Total 6.3 g/dL (6.4-8.2); Sodium Level 138 mmol/L (136-145)
== END ==
LOC: LAB 15:00
PROVIDERS: Referring Provider Obstetrics & Gynecology; Visit Provider Obstetrics & Gynecology
DX: O99.613 Diseases of the digestive system complicating pregnancy, third trimester (principal); K21.9 Gastro-esophageal reflux disease without esophagitis; Z3A.00 Weeks of gestation of pregnancy not specified
CPT/HCPCS: 36415; 80053; 83690; 85025

== ENCOUNTER → 2019-10-21 | Outpatient (CLI) | payer BC, SELFPAY ==
[2019-10-21 13:31] VITALS: BMI 29.6
== END | disposition home or self-care (01) ==
LOC: LABSPEC 17:01
PROVIDERS: Referring Provider Obstetrics & Gynecology; Visit Provider Obstetrics & Gynecology
DX: Z34.90 Encounter for supervision of normal pregnancy, unspecified, unspecified trimester (principal)
CPT/HCPCS: 87081

== ENCOUNTER → 2019-11-03 13:46 | Outpatient (CLI) | payer BC, SELFPAY ==
[2019-11-03 13:30] VITALS: BMI 23.8
[2019-11-03 14:03] LABS: Protein, Urine (Random) 47.1 mg/dL (<11.9); Protein:Creat Ratio 203 mg/g CRE (0-200)
[2019-11-03 15:05] LABS: Absolute Lymphocyte Count 2.34 X10^3/uL (0.83-4.51); Absolute Neutrophil Count 9.2 X10^3/uL (2.0-7.7); Basophil# 0.02 X10^3/uL; Basophil% 0.2 % (0-1); Hematocrit 35.6 % (37-47); Hemoglobin 12.1 g/dL (12.0-15.0); Lymphocyte # 2.34 X10^3/ul (4.0); Lymphocyte % 18.6 % (19-41); Mean Corpuscular Hgb 30.9 pg (27.0-32.0); Mean Corpuscular Volume 90.8 fL (81-99); Mean Platelet Vol. 11.6 fl (6.2-12.0); Monocyte# 0.97 X10^3/uL; Monocyte% 7.7 % (0-10); NRBC Flagged by Analyzer 0 % (0-5); Neutrophil # 9.16 X10^3/uL (2.7-7.7); Neutrophil % 72.9 % (47-70); Platelet Count 218 K/mm3 (150-450); RBC Distribution Width CV 12.5 % (11.6-14.6); RBC Distribution Width SD 41.1 fl (35.1-43.9); Red Blood Count 3.92 M/mm3 (4.2-5.4); White Blood Count 12.6 K/mm3 (4.4-11.0)
[2019-11-03 16:01] LABS: ALB/GLOB Ratio 0.6 RATIO (0.9-2.4); AST(SGOT) 13 U/L (15-37); Alanine Aminotransfer ALT/SGPT 20 U/L (13-56); Albumin, Serum 2.6 g/dL (3.2-5.0); Alkaline Phosphatase 114 U/L (45-117); Anion Gap 8 (5-15); BUN 9 mg/dL (7-18); BUN/Creat Ratio 14.6 RATIO (10-20); Calcium,Total 8.6 mg/dL (8.5-10.1); Chloride 105 mmol/L (98-107); Creatinine, Serum 0.62 mg/dL (0.55-1.02); EST Glomerular Filtration Rate 119 mL/min (>60); Est Glom Filt Rate - Afr Amer 144 mL/min (>60); Globulin 4.1 g/dL (2.2-4.2); Glucose 79 mg/dL (74-106); Potassium 3.9 mmol/L (3.5-5.1); Protein, Total 6.7 g/dL (6.4-8.2); Sodium Level 137 mmol/L (136-145)
== END ==
LOC: LABSPEC 13:54 → LAB 14:27
PROVIDERS: Referring Provider Obstetrics & Gynecology; Visit Provider Obstetrics & Gynecology
DX: O13.9 Gestational [pregnancy-induced] hypertension without significant proteinuria, unspecified trimester (principal); O12.10 Gestational proteinuria, unspecified trimester; Z3A.00 Weeks of gestation of pregnancy not specified
CPT/HCPCS: 36415; 80053; 82570; 84156; 85025; 87086; 87088

== ENCOUNTER → 2019-11-08 | Outpatient (CLI) | payer BC, SELFPAY ==
[2019-11-03 13:30] VITALS: BMI 23.8
== END | disposition home or self-care (01) ==
LOC: MTDU 09:39
PROVIDERS: Referring Provider Obstetrics & Gynecology; Visit Provider Obstetrics & Gynecology
DX: Z11.59 Encounter for screening for other viral diseases (principal)
CPT/HCPCS: 87635; 94799; C9803; U0003

== ENCOUNTER 2019-11-15 23:50 | Inpatient (IN) | payer BC, SELFPAY ==
[2019-11-15 10:55] VITALS: BMI 23.8
[2019-11-15 23:34] VITALS: BMI 30.4
[2019-11-15 23:40] VITALS: BP 120/73; PULSE 73; TEMP 36.9; O2SAT 98
[2019-11-16] VITALS (128 sets, daily range): BP systolic 65–131; BP diastolic 33–81; PULSE 47–112; TEMP 35.8–37.1; O2SAT 90–100
[2019-11-16] MEDS: Lactated Ringers 500 ML 999 ML IV ×5 (00:40→10:34)
[2019-11-16] MEDS: Lactated Ringers 1,000 ML 200 ML IV ×5 (01:10→22:06)
[2019-11-16 01:48] LABS: Amphetamine Urine VISTA NEGATIVE (<1000 ng/mL); Barbiturate Urine VISTA NEGATIVE (< 200 ng/mL); Benzodiazepine Urine VISTA NEGATIVE (< 200 ng/mL); Cocaine Urine VISTA NEGATIVE (< 300 ng/mL); Ecstacy Urine VISTA NEGATIVE (< 500 ng/mL); Methadone Urine VISTA NEGATIVE (< 300 ng/mL); PCP Urine VISTA NEGATIVE (< 25 ng/mL); THC Urine VISTA NEGATIVE (< 50 ng/mL); Vista UDS pH Range 5
[2019-11-16] MEDS: fentaNYL-bupivacaine (epidural) 100 ML BAG EPIDURAL ×3 (03:42→19:00)
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
[2019-11-16] MEDS: ePHEDrine Sulfate 50 MG/ML Ampul IM (07:28)
[2019-11-16] MEDS: Oxytocin 30 units/NS 500 ml 30 UNITS/500 ML IV.SOLN IV (07:44)
[2019-11-16 09:06] LABS: Absolute Lymphocyte Count 2.39 X10^3/uL (0.83-4.51); Absolute Neutrophil Count 10.5 X10^3/uL (2.0-7.7); Basophil# 0.03 X10^3/uL; Basophil% 0.2 % (0-1); Hematocrit 35.9 % (37-47); Hemoglobin 11.9 g/dL (12.0-15.0); Lymphocyte # 2.39 X10^3/ul (4.0); Mean Corp Hgb Conc 33.1 g/dL (32-36); Mean Corpuscular Hgb 31.1 pg (27.0-32.0); Mean Corpuscular Volume 93.7 fL (81-99); Mean Platelet Vol. 12.8 fl (6.2-12.0); Monocyte# 1.02 X10^3/uL; Monocyte% 7.3 % (0-10); NRBC Flagged by Analyzer 0 % (0-5); Neutrophil # 10.51 X10^3/uL (2.7-7.7); Platelet Count 216 K/mm3 (150-450); RBC Distribution Width SD 43.8 fl (35.1-43.9); Red Blood Count 3.83 M/mm3 (4.2-5.4)
[2019-11-16] MEDS: Mag Hydrox/Al Hydrox/Simeth 30 ML UDC PO (12:47)
[2019-11-16] MEDS: DiphenhydrAMINE 50 MG/ML Syringe IV (13:01)
[2019-11-16] MEDS: Amnioinfusion- 0.9% NS 1,000 ML IV.SOLN. 500 ML INTRA-UTER ×2 (15:10→22:08)
[2019-11-16] MEDS: Ondansetron 4 MG/2 ML Vial IV (15:51)
[2019-11-17] VITALS (22 sets, daily range): BP systolic 97–116; BP diastolic 42–69; PULSE 64–93; RESP 14–20; TEMP 36.2–37.1; O2SAT 94–99
--- NOTE | 2019-11-17 02:12 | PCM.PN.BLA ---
Progress Note 34-year-old G1, P0 at 40 weeks 4 days who originally presented with SROM clear fluid 28 hours ago and after 19 hours of Pitocin and an arrest of dilation at 9 cm after 6 hours of adequate contractions the decision was made for proceeding with a primary low transverse due to arrest of dilation suspected CPD. heart tones 150 minimal to moderate variability reactive intermittent variable and late deceleration fluid now meconium. proceed with . STROKE Vital Signs/Narrative: Vital Signs Temp Pulse BP Pulse Ox 11/17/19 02:05 75 98 11/17/19 02:00 98.1 F 64 104/58 L 99 11/17/19 00:10 98.8 F 97 11/17/19 00:08 76 101/65 11/17/19 00:04 72 97/54 L 11/16/19 23:59 77 101/58 L 11/16/19 23:53 73 105/61 11/16/19 23:48 68 104/65 11/16/19 23:43 65 103/68 11/16/19 23:38 80 115/67 11/16/19 23:34 76 115/56 L 11/16/19 23:27 98.1 F 99 11/16/19 23:26 71 103/55 L
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
[2019-11-17] MEDS: Sodium Citrate/Citric Acid 30 ML UDC PO (02:16)
[2019-11-17] MEDS: Cefazolin 2 GM in 0.9% Normal Saline 100 ML IV (02:25)
--- NOTE | 2019-11-17 02:25 | DCINST_ITS ---
Discharge Diet: No Restrictions Discharge Activity: May Not Drive - for 2 weeks, May not drive while taking narcotic pain medications., May Shower, May Take a Tub Bath - in 7 days May resume sexual activity in: 4-6 weeks Lifting Restrictions: 20 pounds Additional Activity Instructions:: Nothing in the vagina for 4-6 weeks. You may return to work/school in 6 weeks. Call your doctor if your incision/area has: Continuous Slow Oozing, Sudden Increased Bleeding, Increased Pain/ Swelling, Increased Redness, Foul Smelling Discharge Call your doctor if you observe: Fever of 101 or Higher, Using more than one pad per hour - for 2 hours Suture Line Care: Avoid Pulling/Pushing, Avoid Pinching/Bending Cleanse incision/area with: Keep Dressing Clean & Dry Additional Instructions: If you experience any of the following, contact your healthcare provider. * Bleeding that soaks a pad every hour for 2 hours * Fever 100.4 or higher * Unrelieved incision or abdominal pain * Swelling, redness, discharge or bleeding from your incision or episiotomy site * Your incision begins to separate * Problems urinating (including inability to urinate or burning while urinating). * Visual changes * Severe headache * Flu-like symptoms * Pain or redness in one of both of your breasts * Pain, warmth, tenderness or swelling in your legs, especially the calf area * Frequent nausea and vomiting * Symptoms of depression or anxiety If you experience any of the following, call 911 or go to the nearest Emergency Room. * Chest pain * Problems breathing * Seizure activity * Partial or complete paralysis of a body part, slurred speech, weakness or drooping of the face, or a sudden inability to walk or hold your balance Allergies/Adverse Reactions: Allergies No Known Allergies Allergy (Verified 11/15/19 23:37) Medications to take at Discharge vitamin#30 30 mg iron-10 mg iron-folic acid 1 mg-omg3 capsule cap PO 08/23/19 Naproxen [Naprosyn] 250 - 500 mg PO Q8H PRN PRN #30 tab 11/17/19 Oxycodone HCl/Acetaminophen [Percocet 5-325] 1 - 2 tablet PO Q6H PRN PRN 7 Days #15 tablet 11/17/19 The following prescriptions were given: Naproxen [Naprosyn] 250 - 500 mg PO Q8H PRN PRN #30 tab PRN Reason: MILD PAIN Transmission Status: Pending to [facility] Oxycodone HCl/Acetaminophen [Percocet 5-325] 1 - 2 tablet PO Q6H PRN PRN 7 Days #15 tablet PRN Reason: Pain Transmission Status: Sent to [facility] Follow-Up: Call to make an appointment with your doctor for an incision check in 1-2 weeks. You will also need a 6 week post- follow up appointment. Test results from this visit will be discussed in further detail at your follow- up appointment, if applicable. Please Follow Up With: Leighann Crandall MD - Call to make an appointment for an incision check in 1-2 [phone] When: You will need a post- check in 6 weeks. Primary Care Physician: Care Physician,No Primary [Primary Care Provider] -
[2019-11-17] MEDS: Oxytocin 30 units/NS 500 ml 30 UNITS/500 ML IV.SOLN 167 UNITS IV (03:25)
[2019-11-17] MEDS: Acetaminophen 500 MG Tablet 1000 MG PO ×3 (06:20→17:58)
[2019-11-17] MEDS: Lactated Ringers 1,000 ML 100 ML IV (06:26)
[2019-11-17] MEDS: Ketorolac 30 MG/ML Syringe IV ×3 (08:38→20:28)
[2019-11-17] MEDS: Senna/Docusate Sodium 1 Tablet PO (09:51)
[2019-11-17] MEDS: 0.9% Saline Lock 10 ML Syringe IV ×2 (14:39→20:31)
[2019-11-18] MEDS: Acetaminophen 500 MG Tablet 1000 MG PO ×3 (00:02→12:28)
[2019-11-18] MEDS: Ketorolac 30 MG/ML Syringe IV (02:34)
[2019-11-18 03:37] VITALS: BP 105/62; PULSE 68; RESP 14; TEMP 37.1
[2019-11-18 05:45] LABS: Hematocrit 29.3 % (37-47); Hemoglobin 9.7 g/dL (12.0-15.0); Mean Corp Hgb Conc 33.1 g/dL (32-36); Mean Corpuscular Hgb 30.6 pg (27.0-32.0); Mean Corpuscular Volume 92.4 fL (81-99); Mean Platelet Vol. 11.3 fl (6.2-12.0); Platelet Count 184 K/mm3 (150-450); RBC Distribution Width CV 12.9 % (11.6-14.6); Red Blood Count 3.17 M/mm3 (4.2-5.4); White Blood Count 14.9 K/mm3 (4.4-11.0)
--- NOTE | 2019-11-18 08:01 | PCM.PN.OB ---
Patient Problems: Active and Suspected Problems (Last Updated 11/17/19 @ 10:13 by Sushila Guevara) SROM (spontaneous rupture of membranes) (Acute) Subjective: Patient doing well without complaints. Pain well controlled. Tolerating PO. Ambulating and voiding without difficulty. Passing gas. Breast feeding without difficulty. Denies chest pain, shortness of breath, calf pain/swelling, fevers, chills, lightheadedness. Objective: Laboratory Tests 11/18/19 11/16/19 11/16/19 Range/Units 05:30 00:56 00:35 WBC 14.9 H 14.0 H Corrected WBC RBC 3.17 L 3.83 L Hgb 9.7 L 11.9 L Hct 29.3 L 35.9 L MCV 92.4 93.7 MCH 30.6 31.1 MCHC 33.1 33.1 RDW Std Deviation 43.0 43.8 RDW Coeff of Sangita 12.9 13.0 Plt Count 184 216 MPV 11.3 12.8 H Immature Gran % (Auto) 0.500 Neut % (Auto) 75.0 H Lymph % (Auto) 17.0 L [place] % (Auto) 7.3 Eos % (Auto) 0.0 Baso % (Auto) 0.2 Absolute Neuts (auto) 10.5 H Absolute Lymphs (auto) 2.39 Total Counted Neutrophils % (Manual) Band Neutrophils % Lymphocytes % (Manual) Monocytes % (Manual) Eosinophils % (Manual) Basophils % (Manual) Metamyelocytes % Myelocytes % Promyelocytes % Blast Cells % Plasma Cell % (Manual) Other Cells % Nucleated RBC % 0 Nucleated RBCs/100 WBC Differential Comment Diff Path Review Hypersegmented Neuts Atypical Lymphocytes Reactive Lymphocytes Smudge Cells Toxic Granulation Toxic Vacuolation Dohle Bodies Frances Rods Platelet Estimate Plt Morphology Comment RBC Morphology Polychromasia Hypochromasia Poikilocytosis Basophilic Stippling Anisocytosis Microcytosis Macrocytosis Spherocytes Sickle Cells Target Cells Tear Drop Cells Ovalocytes Stomatocytes [place] Bodies [place] Cells Bite Cells Crenated Cell Acanthocytes (Spur) Rouleaux Schistocytes Urine Opiates Screen NEGATIVE (< 300 ng/mL) Urine Methadone Screen NEGATIVE (< 300 ng/mL) Ur Barbiturates Screen NEGATIVE (< 200 ng/mL) Ur Phencyclidine Scrn NEGATIVE (< 25 ng/mL) Ur Amphetamines Screen NEGATIVE (<1000 ng/mL) U Methamphetamin-MDMA NEGATIVE (< 500 ng/mL) U Benzodiazepines Scrn NEGATIVE (< 200 ng/mL) Urine Cocaine Screen NEGATIVE (< 300 ng/mL) U Cannabinoids Screen NEGATIVE (< 50 ng/mL) Ur Drug Screen Comment Blood Type Antibody Screen 11/16/19 11/16/19 Range/Units 00:35 00:35 WBC Cancelled Corrected WBC Cancelled RBC Cancelled Hgb Cancelled Hct Cancelled MCV Cancelled MCH Cancelled MCHC Cancelled RDW Std Deviation Cancelled RDW Coeff of Sangita Cancelled Plt Count Cancelled MPV Cancelled Immature Gran % (Auto) Cancelled Neut % (Auto) Cancelled Lymph % (Auto) Cancelled [place] % (Auto) Cancelled Eos % (Auto) Cancelled Baso % (Auto) Cancelled Absolute Neuts (auto) Cancelled Absolute Lymphs (auto) Cancelled Total Counted Cancelled Neutrophils % (Manual) Cancelled Band Neutrophils % Cancelled Lymphocytes % (Manual) Cancelled Monocytes % (Manual) Cancelled Eosinophils % (Manual) Cancelled Basophils % (Manual) Cancelled Metamyelocytes % Cancelled Myelocytes % Cancelled Promyelocytes % Cancelled Blast Cells % Cancelled Plasma Cell % (Manual) Cancelled Other Cells % Cancelled Nucleated RBC % Cancelled Nucleated RBCs/100 WBC Cancelled Differential Comment Cancelled Diff Path Review Cancelled Hypersegmented Neuts Cancelled Atypical Lymphocytes Cancelled Reactive Lymphocytes Cancelled Smudge Cells Cancelled Toxic Granulation Cancelled Toxic Vacuolation Cancelled Dohle Bodies Cancelled Frances Rods Cancelled Platelet Estimate Cancelled Plt Morphology Comment Cancelled RBC Morphology Cancelled Polychromasia Cancelled Hypochromasia Cancelled Poikilocytosis Cancelled Basophilic Stippling Cancelled Anisocytosis Cancelled Microcytosis Cancelled Macrocytosis Cancelled Spherocytes Cancelled Sickle Cells Cancelled Target Cells Cancelled Tear Drop Cells Cancelled Ovalocytes Cancelled Stomatocytes Cancelled [place] Bodies Cancelled [place] Cells Cancelled Bite Cells Cancelled Crenated Cell Cancelled Acanthocytes (Spur) Cancelled Rouleaux Cancelled Schistocytes Cancelled Urine Opiates Screen (< 300 ng/mL) Urine Methadone Screen (< 300 ng/mL) Ur Barbiturates Screen (< 200 ng/mL) Ur Phencyclidine Scrn (< 25 ng/mL) Ur Amphetamines Screen (<1000 ng/mL) U Methamphetamin-MDMA (< 500 ng/mL) U Benzodiazepines Scrn (< 200 ng/mL) Urine Cocaine Screen (< 300 ng/mL) U Cannabinoids Screen (< 50 ng/mL) Ur Drug Screen Comment Blood Type AB POSITIVE Antibody Screen NEGATIVE - Physical Exam Vitals/I&O's: Vital Signs Temp Pulse Resp BP Pulse Ox 98.7 F 68 14 105/62 98 11/18/19 03:37 11/18/19 03:37 11/18/19 03:37 11/18/19 03:37 11/17/19 16:18 Oxygen Delivery Method Room Air Weight: 161 lb 6.4 oz Body Mass Index (BMI) 30.4 Intake and Output for Last 24 Hours 11/16/19 11/17/19 11/18/19 23:59 23:59 23:59 Intake Total 6888.50 / 6888.50 3028.84 / 3028.84 Output Total 2099 / 2099 2024 / 2024 Balance 4788.50 / 4788.50 1003.84 / 1003.84 General: Alert, Oriented x3, Cooperative HEENT: Atraumatic, PERRLA, EOMI, Normocephalic Neck: Supple Lungs: Clear to auscultation, Normal air movement Cardiovascular: Regular rate, No murmurs Abdomen: Bowel Sounds Present, Soft, Non Tender Extremities: No edema, No Calf Tenderness Skin: No rashes, No breakdown Neurological: Cranial nerves II-XII grossly intact Psych/Mental Status: Normal Affect, Appropriate Laboratory Results 11/18/19 05:30: WBC 14.9 H, RBC 3.17 L, Hgb 9.7 L, Hct 29.3 L, MCV 92.4, MCH 30.6, MCHC 33.1, RDW Std Deviation 43.0, RDW Coeff of Sangita 12.9, Plt Count 184, MPV 11.3 Current Medications Acetaminophen (Tylenol) 1,000 mg PO Q6 JORDYN Last Admin: 11/18/19 06:21 Dose: 1,000 mg Documented by: Bisacodyl (Dulcolax) 10 mg RECTAL UD PRN PRN Reason: If no BM Hydrocortisone (Hytone) 1 applic TOPICAL TID PRN PRN; Protocol PRN Reason: Discomfort Naloxone HCl 4 mg/ Dextrose 504 mls @ 0 mls/hr IV .Q0M PRN; Protocol PRN Reason: Respiratory depression Naloxone HCl 4 mg/ Dextrose 504 mls @ 0 mls/hr IV .Q0M PRN; Protocol PRN Reason: To maintain Resp. rate >10 Methylergonovine Maleate (Methergine) 0.2 mg IM X1 PRN PRN Reason: Uterine Atony Naloxone HCl (Narcan) 0.02 mg IV Q1M PRN PRN Reason: RR <10 and pt unresponsive Naloxone HCl (Narcan) 0.02 mg IV Q1M PRN PRN Reason: RR< 10 AND PT UNRESPONSIVE Naproxen (Naprosyn) 500 mg PO Q8H JORDYN Ondansetron HCl (Zofran) 4 mg IV Q4H PRN PRN PRN Reason: Nausea Oxycodone HCl (Oxyir) 5 - 10 mg PO Q4H PRN PRN PRN Reason: Pain Score 4-10/10 Prochlorperazine Edisylate (Compazine Iv) 10 mg IV Q6H PRN PRN PRN Reason: NAUSEA Senna/Docusate Sodium (Senokot-S, Bhavana-Colace) 1 - 2 tablet PO DAILY JORDYN Last Admin: 11/17/19 09:51 Dose: 2 tablet Documented by: Simethicone (Mylicon) 80 mg PO PCHS PRN PRN Reason: Indigestion/stomach pain Sodium Chloride () 5 - 15 ml IV UD PRN PRN Reason: SALINE FLUSH Last Admin: 11/17/19 20:31 Dose: 10 ml Documented by: Medical Necessity - Tobacco Use Smoking Status: Former smoker Assessment/Plan All Active Problems (Last Updated 11/17/19 @ 10:13 by Sushila Guevara) SROM (spontaneous rupture of membranes) (Acute) Abnormal glucose tolerance affecting , antepartum (Acute) Marijuana abuse (Acute) History of chronic pain (Acute) (Acute) Supervision of normal (Acute) Gastroesophageal reflux during in third trimester, antepartum (Resolved) Missed ab (Resolved) Transient hypertension of (Resolved) s/p PLTCS for arrest of dilation PPD #1 1. routine post care 2. breast feeding- support given 3. rh positive 4. rubella immune
[2019-11-18 08:16] VITALS: BP 125/62; PULSE 68; RESP 18; TEMP 36.6; O2SAT 98
[2019-11-18] MEDS: Senna/Docusate Sodium 1 Tablet PO (08:25)
[2019-11-18] MEDS: Naproxen 250 MG Tablet 500 MG PO (08:26)
[2019-11-18 14:57] VITALS: BP 120/77; PULSE 69; RESP 18; TEMP 36.6
== END 2019-11-18 15:30 | disposition home or self-care (01) | DRG 787 ==
LOC: WPOUT 23:54 → WP 23:54
PROVIDERS: Admitting Provider Obstetrics & Gynecology; Visit Provider Obstetrics & Gynecology
DX: O76 Abnormality in fetal heart rate and rhythm complicating labor and delivery (principal); O99.324 Drug use complicating childbirth; O62.2 Other uterine inertia; O77.0 Labor and delivery complicated by meconium in amniotic fluid; F12.10 Cannabis abuse, uncomplicated; O33.9 Maternal care for disproportion, unspecified; O42.92 Full-term premature rupture of membranes, unspecified as to length of time between rupture and onset of labor; O69.81X0 Labor and delivery complicated by cord around neck, without compression, not applicable or unspecified; O99.814 Abnormal glucose complicating childbirth; O99.89 Other specified diseases and conditions complicating pregnancy, childbirth and the puerperium; N87.9 Dysplasia of cervix uteri, unspecified; O99.63 Diseases of the digestive system complicating the puerperium; K21.9 Gastro-esophageal reflux disease without esophagitis; Z3A.40 40 weeks gestation of pregnancy; Z37.0 Single live birth; Z87.891 Personal history of nicotine dependence
CPT/HCPCS: 59025; 59050; 80307; 85025; 85027; 86850; 86900; 86901; 99218; J7030; J7120; A4216; G0378; J2405

== ENCOUNTER 2025-02-27 15:48 | Emergency (ER) | payer BC, SELFPAY ==
[2025-02-27 15:48] VITALS: BP 123/69; PULSE 66; RESP 16; TEMP 36.8; O2SAT 96; BMI 24.3
--- NOTE | 2025-02-27 16:13 | CT_ITS ---
PROCEDURE: CTA HEAD AND NECK W/ CONTRAST 02/27/2025 REASON FOR EXAM: HEADACHES TECHNIQUE: Procedure Code: CTCTA.HDNCK Modality: CT Procedure: CTA HEAD AND NECK W/ CONTRAST Multiplanar Sagittal and Coronal images were obtained. CONTRAST: Isovue 370 VOLUME: 100 mL One or more dose reduction techniques were used (e.g., Automated exposure control, adjustment of the mA and/or kV according to patient size, use of iterative reconstruction technique). RADIATION DOSE SUMMARY: CTDlvol: 76.32 mGy DLP: 1336.46 mGycm COMPARISON: None FINDINGS: Aortic Arch: Normal size and branching pattern. No significant atherosclerotic plaque. Brachiocephalic and Subclavians: Unremarkable RIGHT Carotid: Right CCA: Unremarkable. Right ICA: Unremarkable. Maximum stenosis (NASCET): The % Right ECA: Unremarkable. LEFT Carotid: Left CCA: Unremarkable. Left ICA: Unremarkable. Maximum stenosis (NASCET): 0 % Left ECA: Unremarkable. Vertebrals: Codominant. Arise from the subclavians. Both vertebrals form the basilar. RIGHT Vertebral: Unremarkable. LEFT Vertebral: Unremarkable. Anatomy: Bilateral posterior communicating arteries are not well visualized. Aneurysm or avm: No intracranial aneurysms or large vascular malformations are identified. Anterior cerebral arteries: Unremarkable: Middle cerebral arteries: Unremarkable. Basilar artery: Unremarkable. Posterior cerebral arteries: Unremarkable. Other major branches of the posterior circulation: Unremarkable. Major venous structures: Unremarkable. Other findings: Neck: No lymphadenopathy. Lungs: Lung apices are clear. Bones: Bones are unremarkable. CT/CTA Head AND Neck W/ Contrast IMPRESSION: Patent bilateral carotid and vertebral arteries without evidence of aneurysm or AV malformation. No large vessel occlusion. Reading Location: [facility]
--- NOTE | 2025-02-27 16:15 | EDS_ITS ---
HPI History of Present Illness Chief Complaint: Headache Detail of Chief Complaint: Headache Informant: patient Narrative Narrative: Patient presents with headache that started about a week and a half ago. Describes left-sided head pain that has been continuous with sharp intermittent pains. She planes of photophobia and nausea. She does have history of migraines. She states over the last 6 months she has really had increasing frequency of headaches. Recently went through a divorce. She has never had any imaging of her brain. Her significant other was concerned about possibility of brain aneurysm. Patient does not have a family history of brain tumors or aneurysms. She denies recent illness. She denies falls or head injuries. [facility] Medical History (Updated 02/27/25 @ 19:[address] Beti Morales DO) delivery due to maternal disorder Anxiety and depression Allergy/AdvReac Type Severity Reaction Status Date / Time No Known Allergies Allergy Verified 02/27/25 15:49 Surgical History S/P H/O dilation and curettage Social History Smoking Status: Former smoker alcohol intake: never substance use type: does not use caffeine: Yes what type of physical activity do you participate in: walking seatbelt use: always do you feel safe at home: Yes additional social history: Patient [place] [employer] ROS ED Review of Systems ROS Unobtainable: other Constitutional Constitutional ED: Reports lethargy; Denies chills, fever(s), sweats or weight loss Eyes Eyes: Reports other Details: Photophobia ; Denies blurry vision, change in vision or diplopia ENT ENT ED: Denies rhinorrhea or sore throat Cardiovascular Cardiovascular: Denies chest pain, orthopnea or racing heartbeat Respiratory/Chest Respiratory/Chest: Denies cough, dyspnea, dyspnea on exertion, orthopnea or sputum Gastrointestinal Gastrointestinal: Reports nausea; Denies abdominal pain, diarrhea or vomiting Genitourinary Genitourinary ED: Denies dysuria, hematuria or urinary frequency Musculoskeletal Musculoskeletal: Denies arthralgias, back pain, myalgias or neck pain Integumentary Denies abscess, Abrasions or rash Neurologic Neurologic: Reports headache(s); Denies weakness Psychiatric Psychiatric: Denies anxiety, depression or suicidal thoughts Endocrine Endocrinology: Denies polydipsia, polyphagia or polyuria Hematologic/Lymphatic Hematologic/Lymphatic: Denies easy bleeding, easy bruising or lymphadenopathy Allergic/Immunologic Allergic/Immunologic ED: Denies mouth swelling, tongue swelling or urticaria EXAM Physical Exam Const Vital Signs: 02/27/25 15:48 Temperature 98.2 F Temperature Source Oral Pulse Rate 66 Respiratory Rate 16 Blood Pressure 123/69 H Blood Pressure Mean 87 Pulse Ox 96 Oxygen Delivery Method Room Air Positive well nourished and well developed General Appearance ED: well developed and NAD HEENT Reports TM's clear and moist mucous membranes normocephalic and atraumatic; Negative for trauma or tenderness Tympanic Membrane ED: Yes TM's clear Eyes PERRL and EOMs intact bilaterally General Eye ED: Negative for pale conjunctiva or scleral icterus Neck no lymphadenopathy, supple and no JVD General: Negative for tenderness Chest Wall inspection of chest normal and palpation of chest normal Chest: Negative for tenderness Resp normal respiratory effort and clear to auscultation bilaterally Effort and Inspection: Negative for respiratory distress or pain with movement Auscultation: Negative for rhonchi, wheezes or diminished lung sounds Cardio regular rate, regular rhythm, S1 normal heart sound, S2 normal heart sound and no murmurs Peripheral Pulses: pulses 2+ throughout GI normal to inspection, nondistended, normoactive bowel sounds, soft to palpation, non-tender, non-distended and no masses Back/Spine no CVA tenderness and no thoracic nor lumbar tenderness Extremity normal to inspection General Extremety ED: Negative for edema General Extremity: Negative for edema Neuro oriented x3, CN's II-XII intact bilaterally, no sensory deficits noted and gait normal Neuro Narrative: Finger-nose and heel miller testing within normal limits, negative Romberg, negative for drift, fundi benign Sensorium / Orientation: awake, alert, oriented to person, oriented to place and oriented to time Motor Exam: strength 5/5 throughout and strength abnormal Psych mental status grossly normal Skin no rashes or lesions noted and no wounds MDM MDM MDM Narrative Medical decision making narrative: Patient presents with ongoing headaches more frequent over the last 6 months or so. Has never had imaging of her brain. Her mother suffered with migraines. Worried about possible aneurysm. Clinically looks well. IV line established. CBC with differential obtained was normal. Chemistries were normal. hCG was negative. Patient had a CTA of the head and neck that was normal. I did treat her with Reglan Benadryl and Toradol and a liter normal saline fluid bolus and her headache resolved. At this point suspect likely migraine. Will refer to neurology for follow-up. Lab Data Attestation: I reviewed the patient's lab results. Labs: Laboratory Results - last 24 hr 02/27/25 16:25 WBC 7.7 RBC 4.26 Hgb 13.0 Hct 37.4 MCV 87.8 MCH 30.5 MCHC 34.8 RDW Std Deviation 36.9 RDW Coeff of Sangita 11.6 Plt Count 222 MPV 10.0 Immature Gran % (Auto) 0.400 Neut % (Auto) 65.3 Lymph % (Auto) 26.8 [place] % (Auto) 7.2 Eos % (Auto) 0.0 Baso % (Auto) 0.3 Absolute Neuts (auto) 5.1 Absolute Lymphs (auto) 2.07 Nucleated RBC % 0 Sodium 139 Potassium 3.4 Chloride 105 Carbon Dioxide 23.9 Anion Gap 10 BUN 9 Creatinine 0.68 L Estim Creat Clear Calc 92.98 Est GFR (MDRD) Non-Af 115 BUN/Creatinine Ratio 13.9 Glucose 90 Calcium 8.8 Serum , Qual NEGATIVE Radiography Diagnostic Testing: Clinical Impression(s) from Imaging Studies Head/Neck CTA 02/27/25 16:13 IMPRESSION: Patent bilateral carotid and vertebral arteries without evidence of aneurysm or AV malformation. No large vessel occlusion. Reading Location: [facility] Discharge Plan Triage Chief Complaint: Headache ED Provider: Beti Morales Dx/Rx/DC Orders Clinical Impression: Headache, migraine Instructions: ED, Migraine (Classical) Primary Care Provider: Care Physician,No Primary Referrals: Adis Downey MD [Non-Staff -Ordering Privileges, Neurology] - 3-5 Days Care Physician,No Primary [Primary Care Provider, Medical] Print Language: German Disposition Disposition: Home, Self Care
[2025-02-27] MEDS: 0.9% Normal Saline (1000mL) 1,000 ML 1000 ML IV (16:23)
[2025-02-27] MEDS: Ketorolac 30 MG/ML Syringe IV (16:24)
[2025-02-27] MEDS: DiphenhydrAMINE 50 MG/ML Syringe 25 MG IV (16:25)
--- OUTSIDE RECORDS SUMMARY | 2025-02-27 16:25 | XMS RPT_ITS | CCD ---
Author Organization [facility] CliniSyma Care Team Providers Care Marine Insulator Name Role Phone Roof Akhil CARPENTER Attending Unavailable Care Physician, No Primary Primary Care Unava ilable Care Physician, No Primary Referring Unava ilable Drew Crum Attending Unavailable Care Physician, No Primary Primary Care Unava ilable Care Physician, No Primary Referring Unava ilable Problems Active Problems Problem Classification Problem Date Documented Da te Episodic/Chronic E Codes: Natural/environment (1 source) Bitten or stung by nonvenomous insect and other nonvenomous arthropods, initial encounter; Translations: [Bitten or stung by nonvenomous insect and other nonvenomous arthropods, initial encounter] Onset: 01-16-2025 Episodic Superficial injury; contusion (1 source) Insect bite (nonvenomous) of left forearm, initial encounter; Translations: [Insect bite (nonvenomous) of left forearm, initial encounter] Onset: 01-16-2025 Episodic Past or Other Problems Problem Classification Problem Date Documented Da te Episodic/Chronic Residual codes; unclassified (1 source) Other general symptoms and signs; Translations: [Other general symptoms and signs] Onset: 07-19-2024 Episodic Results Test Name Value Interpretation Reference Range Facil ity Urgent Care Visit Reporton 1 Urgent Care Visit Report [facility] [address] , [address] [place], [place] [id number] OFFICE VISIT Date of Service: 01/16/25 MR#: [id number] Acct: [id number] Name: CHINTAN LIVINGSTON Rep #: [id number] : 1985 Provider: YURIY tanner Age/Sex: 39/F Location: [facility] Status: Signed Intake Vital Signs 07/19/24 13:35 01/16/25 08:04 01/16/25 08:09 Height 5 ft 1 in 5 ft 1 in 5 ft 1 in Weight: 138 lb 124 lb BMI 26.0 23.4 BP 114/68 102/70 Blood Pressure Location Lt brachial Rt brachial Position Sitting Sitting Respiration 16 Pulse 72 66 Pulse Source Monitor Monitor Temp 98.6 F 97.9 F Temp Source Temporal Oral Pulse Oximetry (%) 97 97 Oxygen Delivery Method room air room air Intake Visit Reasons: TICK BITE ON L ARM Chief Complaint: Tick Bite Accompanied by: Self Allergies No Known Allergies Allergy (Verified 01/16/25 08:07) Medications ???Medication ???Instructions ???Recorded ???Confirmed ???Type doxycycline hyclate 100 mg capsule 200 mg (2 x 100 mg) PO ONCE #2 c aps 01/16/25 01/16/25 Rx Nurse's Note: Tick bite yesterday on left arm. Left arm cramping last night. Removed tick but now left arm pain up arm. [facility] Medical History (Updated 01/16/25 @ 08:15 by Akhil Urrutia ACTOR UNDERSTUDY, ACTOR UNDERSTUDY-C) delivery due to maternal disorder Anxiety and depression Surgical History S/P H/O dilation and curettage Social History Smoking Status: Former smoker alcohol intake: never substance use type: does not use caffeine: Yes what type of physical activity do you participate in: walking seatbelt use: always do you feel safe at home: Yes additional social history: Patient works at [employer] [facility] HPI Chief Complaint: Tick Bite Details: CHINTAN LIVINGSTON, is a 39 F who presents to the office today for tick bite yesterday on left arm. Left arm cramping last night. Removed tick but now left arm pain up arm. ROS Const Constitutional: No body ache, chills, fatigue, fever(s), headache(s), snoring, weakness or sleep problems Eyes Eyes: No blurry vision, change in vision, double vision, irritation, discharge, vision loss, dry eyes, bulging eyes, floaters, visual disturbances, eye pain, Light sensitivity, spots in vision or tunnel vision ENT ENT: No abnormal hearing, ear or mastoid pain, ear discharge, ear pressure, hearing loss, tinnitus, dizziness/vertigo, balance problems, nosebleed/epistaxis, nasal congestion, nasal obstruction, nose pain, sinus pressure, sinus pain, nasal discharge, post nasal drip, headache(s), facial pain, dental pain, dry mouth, difficulty swallowing, bad breath, hoarseness, lip swelling, mouth lesions, mouth pain, neck pain, sore throat, tongue swelling or throat swelling Resp Respiratory: No cough, change in phlegm color, chest congestion, excessive phlegm production, hemoptysis, shortness of breath, snoring, stridor or wheezing Cardio Cardiology: No chest pain at rest, chest pain with exertion, shortness of breath, dyspnea on exertion, generalized swelling, irregular heart rhythm, lightheadedness, orthopnea, radiating jaw, neck or arm pain, fast heart rate, slow heart rate, palpitations or difficulty breathing Gastro GI: No abdominal pain, diarrhea, difficulty swallowing, nausea/dyspepsia or vomiting Musc Musculoskeletal: Positive for other (left arm cramping); No abnormal gait, joint pain, joint swelling, limited range of motion, muscle weakness, neck pain, stiffness or tingling Skin Skin: No itchy eyes Neuro Neurology: No abnormal gait, abnormal hearing, weakness, headache(s), tingling or visual disturbances Endo Endocrine: No fatigue Aller/Imm Allergy/Immunologic: No itchy eyes, lip swelling, throat swelling, tongue swelling or wheezing Exam Const General: cooperative, healthy appearing, comfortable and no acute distress Nutritional Appearance: average body habitus and well nourished Orientation: alert, awake and oriented x3 [facility] Head: normal to inspection Ears: hearing grossly normal bilaterally Nose: external nose normal Face and sinus: face symmetric Mouth: moist mucous membranes Eyes General: appearance normal, both eyes and all related structures Eyelids: eyelids normal EOM: EOM intact bilaterally Neck Neck: normal visual inspection Carotids: normal carotid upstroke Chest Chest palpation inspection: normal inspection of the chest Resp Effort Inspection: normal respiratory effort, symmetric chest movement and no cough Auscultation: Bilateral: Clear to Auscultation Cardio Rate: regular rate Rhythm: regular rhythm Heart Sounds: S1 normal, S2 normal, no gallops, no murmurs and no rubs GI Inspection: (more content not included)... Normal [facility] Urgent Care Visit Reporton 0 07-19-2024 Urgent Care Visit Report [facility] [address], [address] [place], [place] [address] OFFICE VISIT Date of Service: 07/19/24 MR#: [id number] Acct: [id number] Name: CHINTAN LIVINGSTON Rep #: [id number] : 1985 Provider: CINDY Alvarenga Age/Sex: 39/F Location: [facility] Status: Signed with Addenda ADDENDUM by TAURUS Turner on 07/19/24 at 1412 Office Procedure Documentation entered by Sima Turner MA 07/19/24 14:12: Results POC Rapid Strep A Office Rapid Strep A Negative Last Edit by Sima Turner MA on 07/19/24 14:12 Date cc: * Signed Intake Vital Signs 07/19/24 13:35 Height 5 ft 1 in Weight: 138 lb BMI 26.0 BP 114/68 Blood Pressure Location Lt brachial Position Sitting Respiration 16 Pulse 72 Pulse Source Monitor Temp 98.6 F Temp Source Temporal Pulse Oximetry (%) 97 Oxygen Delivery Method room air Intake Visit Reasons: RASH /EXPOSED TO ALFREDITO FEVER 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 Pt states yesterday she started w/ similar looking spots. denies sore throat, swollen lymph nodes, fever, or any other sx's. No pain or warmth to the spots. L arm is affected. PFSH Medical History delivery due to maternal disorder Anxiety and depression Surgical History S/P H/O dilation and curettage Social History Smoking Status: Former smoker alcohol intake: never substance use type: does not use caffeine: Yes what type of physical activity do you participate in: walking seatbelt use: always do you feel safe at home: Yes additional social history: Patient works at [employer] HPI Details: CHINTAN LIVINGSTON, is a 39 F who presents to the office today for [facility] evaluation at [facility] for approximately 2 to 3-day history of pruritic rash to BUE and trace to absent irritated throat, particularly concerned as her son was recently diagnosed with streptococcal pharyngitis as well as scarlet fever. She would like to be tested for streptococcal pharyngitis as well to ensure she does not have it. No [id number] products taken to assist. No other associated symptoms and no other alleviating/aggravatin g factors. ROS Const Constitutional: No other (As above) Exam Const General: cooperative, healthy appearing and no acute distress Orientation: alert, awake and oriented x3 [facility] Head: normal to inspection Ears: hearing grossly normal bilaterally, external ears normal, TM's normal bilaterally and EAC's normal Nose: external nose normal, nares normal, septum normal and no nasal discharge Face and sinus: normal facial exam, sinuses nontender and face symmetric Mouth: oral mucosae normal, lip normal, tongue normal and oropharynx normal Throat: posterior oropharynx normal, uvula midline, abnormal tonsil bilaterally trace erythema with no exudates and no hypertrophy, and no postnasal drainage Eyes General: appearance normal, both eyes and all related structures Neck Neck: normal visual inspection, full ROM, no meningeal signs, supple and lymphadenopathy (Bilateral anterior cervical lymph node trace swelling/nontender to palpation) Neck mass: No Thyroid: thyroid normal Chest Chest palpation inspection: normal inspection of the chest Resp Effort Inspection: normal respiratory effort and able to speak in complete sentences Auscultation: Bilateral: Clear to Auscultation Cardio Palpation: normal PMI Rate: regular rate Rhythm: regular rhythm Heart Sounds: S1 normal, S2 normal, no gallops, no murmurs and no rubs Pulses: radial pulses present Skin General: no rashes or lesions noted (except abrasion appreciated to left antecubital region) Neuro General: patient alert, patient awake and patient oriented x3 Cognition: normal cognition Speech: speech normal Psych Appearance: grossly normal Mental Status: mental status grossly normal Mood: congruent mood Affect: normal affect Speech and Movement: speech and movement normal Attitude: cooperative Diagnoses Acute pharyngitis J02.9 Assessment and Plan Assessment and Plan (1) Acute pharyngitis: Status: Acute Plan: See POC results. Supportive measures as instructed today. Follow-up with PCP in 5-7 days should symptoms not improve, ED sooner (more content not included)... Normal [facility] Encounters Encounter Date Encounter Type Care Provider Facility Start: 01-16-2025 End: 01-16-2025 ambulatory Akhil Urrutia NP Facility:[facility] Start: 07-19-2024 End: 07-19-2024 ambulatory Drew WHITE Facility:[facility] Payers Date Payer Category Payer Self-pay 2024 Unknown [id number] Unknown [id number] Unknown [id number] Summary Purpose Family History No Family History Records Found Advance Directives No Advanced Directives Records Found Additional Source Comments INFORMATION SOURCE (unrecogn ized section and content) DATE CREATED AUTHOR 01/17/2025 [facility] FOR RECORDS PERTAINING TO PATIENTS WHO ARE OR HAVE BEEN ENROLLED IN A CHEMICAL DEPENDENCY/SUBSTANCEABUSE PROGRAM, SOME INFORMATION MAY BE OMITTED. This clinical summary was aggregated from multiple sources. Caution should be exercised in using it in the provision of clinical care. This summary normalizes information from multiple sources, and as a consequence, information in this document may materially change the coding, format and clinical context of patient data. In addition, data may be omitted in some cases. CLINICAL DECISIONS SHOULD BE BASED ON THE PRIMARY CLINICAL RECORDS. [employer] provides no warranty or guarantee of the accuracy or completeness of information in this document.
[2025-02-27 16:29] LABS: Hematocrit 37.4 % (37-47); Hemoglobin 13.0 g/dL (12.0-15.0); Immature Granulocytes Count 0.030 X10^3/uL (0.0-0.0); Mean Corp Hgb Conc 34.8 g/dL (32-36); Mean Corpuscular Volume 87.8 fL (81-99); Mean Platelet Vol. 10.0 fl (6.2-12.0); NRBC Flagged by Analyzer 0 % (0-5); Platelet Count 222 K/mm3 (150-450); RBC Distribution Width CV 11.6 % (11.6-14.6); RBC Distribution Width SD 36.9 fl (35.1-43.9); Red Blood Count 4.26 M/mm3 (4.2-5.4); White Blood Count 7.7 K/mm3 (4.4-11.0)
[2025-02-27 16:46] LABS: Internal QC Validated? YES +Cl - CLEAR BKGD; Pregnancy, Serum, hCG Quali. NEGATIVE Negative
[2025-02-27 17:08] LABS: Anion Gap 10 (5-15); BUN 9 mg/dL (4-19); BUN/Creat Ratio 13.9 RATIO (10-20); Calcium,Total 8.8 mg/dL (7.6-11.0); Carbon Dioxide 23.9 mmol/L (21.0-32.0); Chloride 105 mmol/L (98-108); Estimated Creatinine Clearance 92.98 ml/min (50-250); Glucose 90 mg/dL (70-99); Potassium 3.4 mmol/L (3.3-5.1)
[2025-02-27 17:48] VITALS: BP 122/68; PULSE 72; RESP 16; O2SAT 98
[2025-02-27 19:18] VITALS: BP 118/62; PULSE 76; RESP 18; TEMP 36.6; O2SAT 100
== END 2025-02-27 19:18 | disposition home or self-care (01) ==
PROVIDERS: Emergency Provider Emergency Medicine; Visit Provider Emergency Medicine
DX: G43.909 Migraine, unspecified, not intractable, without status migrainosus (principal); Z87.891 Personal history of nicotine dependence
CPT/HCPCS: 70496; 70498; 80048; 84703; 85025; 96361; 96374; 96375; 99283; Q9967; A4216

== ENCOUNTER → 2025-03-11 | Outpatient (CLI) | payer BC, SELFPAY ==
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
--- OUTSIDE RECORDS SUMMARY | 2025-03-11 16:55 | XMS RPT_ITS | CCD ---
Author Organization [facility] CliniSyut Care Team Providers Care Line Service Technician Name Role Phone Roof Akhil CARPENTER Attending [...] Visit Reporton 1 Urgent Care Visit Report [facility] [address] , [address] [place], [place] [id number] OFFICE VISIT Date of Service: 01/16/25 MR#: [id number] Acct: [id number] Name: CHINTAN LIVINGSTON Rep #: [id number] : 1985 Provider: YURIY tanner Age/Sex: 39/F Location: [facility] Status: Signed Intake Vital Signs 07/19/24 13:35 [...] but now left arm pain up arm. [facility] Medical History (Updated 01/16/25 @ 08:15 by Akhil Urrutia MEDIA SALES CONSULTANT, MEDIA SALES CONSULTANT-C) delivery due to maternal disorder Anxiety and depression Surgical History S/P H/O dilation and curettage Social History Smoking Status: Former smoker alcohol intake: never substance use type: does not use caffeine: Yes what type of physical activity do you participate in: walking seatbelt use: always do you feel safe at home: Yes additional social history: Patient works at [employer] HPI Chief Complaint: Tick Bite [...] nourished Orientation: alert, awake and oriented x3 [facility] Head: normal to inspection Ears: hearing grossly [...] GI Inspection: (more content not included)... Normal [facility] Urgent Care Visit Reporton 0 07-19-2024 [address] Report 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 No [id number] products taken to assist. No other associated [...] ED sooner (more content not included)... Normal [facility] Encounters Encounter Date Encounter Type Care Provider Facility Start: 01-16-2025 End: 01-16-2025 ambulatory Akhil Urrutia NP Facility:[facility] Start: 07-19-2024 End: 07-19-2024 ambulatory Drew WHITE Facility:[facility] Payers Date Payer Category Payer Self-pay 2024 Unknown [id number] Unknown [id number] Unknown [id number] Summary Purpose Family History No Family History Records Found Advance Directives No Advanced Directives Records Found Additional Source Comments INFORMATION SOURCE (unrecogn ized section and content) DATE CREATED AUTHOR 01/17/2025 [facility] FOR RECORDS PERTAINING TO PATIENTS WHO ARE [...] BE BASED ON THE PRIMARY CLINICAL RECORDS. [employer] provides no warranty or guarantee of the accuracy or completeness of information in this document.
== END | disposition home or self-care (01) ==
LOC: MTRAD 16:10
PROVIDERS: PCP Family Medicine; Referring Provider Family Medicine; Visit Provider Family Medicine
DX: M54.50 Low back pain, unspecified (principal); V89.2XXA Person injured in unspecified motor-vehicle accident, traffic, initial encounter
CPT/HCPCS: 72110